=== PATIENT | female | born 1990 | race Caucasian/White ===

== ENCOUNTER → 2019-07-18 08:27 | Outpatient (BNVA) | payer SELFPAY | PROVIDERS: Family Provider Nurse Practitioner; PCP Nurse Practitioner; Visit Provider Obstetrics & Gynecology | DX: A59.9 Trichomoniasis, unspecified (principal) | CPT/HCPCS: 87491; 87591 ==

== ENCOUNTER 2021-03-31 21:31 | Emergency (ER) | payer SELFPAY ==
[2021-03-31 21:37] VITALS: BP 137/80; PULSE 88; RESP 18; TEMP 36.1; O2SAT 97; BMI 33.3
--- NOTE | 2021-03-31 21:53 | W.ED.EYEPROB ---
HPI - Eye Problem General: Chief complaint: Eye Problems Stated complaint: right eye vision loss Time Seen by Provider: 03/31/21 21:53 History of Present Illness: HPI Narrative: Ms. Fine is a 30-year-old lady with history of contact use who presents the emergency department due to eye complaint. She reports yesterday feeling mild aching in her eyes and her removed her contacts both intact. This morning she has had increased redness and pain in the right eye. Pain is generalized and aching in quality. At times up to moderate intensity. Additionally she has had a few episodes of visual disturbance. She describes increased pain with flashing bright light followed by temporary complete loss of vision in the right eye. This subsequently returned and has not recurred over the past hour. She denies similar episodes in the past. Symptoms are typically worse with movement and exertion. No other specific changes in health, exacerbating, relieving factors identified. chief complaint: eye pain, eye redness and vision change Onset (ago): hour(s) Onset description: sudden and gradual Duration: constant Location: right eye Eye Symptoms: redness, pain and decreased vision Mechanism: none Severity: moderate If Pain, Quality: sharp and aching Context: contact lens use Associated symptoms: Reports no associated symptoms Treatments Prior to Arrival: removed contact lens Review of Systems General: Reports: 10 or more systems reviewed and unremarkable except in HPI and below PFS ED PFSH: Medical History (Updated 04/01/21 @ 00:50 by Isael Villafana MD) Polycystic ovarian syndrome 12/20/2017: Diagnosed with PCOS. Started on metformin > 1 year ago. Surgical History No pertinent past surgical history Family History Grandfather Diabetes Maternal grandfather Paternal grandfather Grandmother Diabetes Maternal grandmother Paternal grandmother Mother Heart disease Hyperlipidemia Hypertension Sister Hypertension Family/Other Breast cancer maternal aunt Social History Smoking and tobacco status: current every day smoker cigarettes [ Other cigarette details: 3 daily ] Alcohol intake: never Physical Exam Const: COMMON NORMALS: alert GENERAL APPEARANCE: cooperative and well developed HENMT: COMMON NORMALS: normocephalic and atraumatic HEAD & SCALP: normocephalic and atraumatic THROAT: posterior oropharynx normal Eye: COMMON NORMALS: Equal, round and reactive pupils present and no scleral icterus VISUAL ACUITY: Yes acuity normal ALIGNMENT: Yes alignment normal CONJUNCTIVA: Yes conjunctival abnormal (Conjunctival injection) positive right PUPIL: Yes Equal, round and reactive pupils present and Yes Pupil accommodation reflex normal EYE IMAGES: 1. raised lesion 3 oclock position Neck/C-Spine: COMMON NORMALS: supple GENERAL: Yes trachea midline Resp: COMMON NORMALS: normal respiratory effort EFFORT & INSPECTION: Yes able to speak in complete sentences Cardio: COMMON NORMALS: regular rate and regular rhythm RATE: regular rate RHYTHM: regular rhythm GI: COMMON NORMALS: Soft to palpation PALPATION: Yes Soft to palpation and No Tenderness to palpation present (GI) PERCUSSION: normal to percussion Extremity: GENERAL: Yes normal exam except as noted and No edema Neuro: COMMON NORMALS: moves all extremities SENSORIUM/ORIENTATION: Yes alert and No Orientation impaired Psych: COMMON NORMALS: mental status grossly normal and Normal thought process present THOUGHT PROCESS: Normal thought process present Course ED course: - Patient was seen and evaluated by me at bedside - Vital signed obtained - Initial evaluation notable for non focal neuro exam - Imaging notable for negative head CT. Eye vessels likely too small to evaluate on CTA - Stained eye exam without abrasion. Suspected pterygium or other scleral raised anomoly R eye 3 oclock position just outside iris. Eye pressures OS 10 OD 11 - POC limited ocular US negative for obvious pathology - Upon serial reexamination after treatment the patient was similar without recurrence of vision loss - Given contact lens use will do antibiotic drops. Discussed with ophthalmology, patient can follow in clinic though he is concerned about vascular cause. Discussed smoking cessation with patient. Plan to start on aspirin. - Based on patient history, evaluation, labs, and imaging as interpreted the most likely cause of the patient's condition is transient recurrent vision loss with abnormality seen on eye exam. - The results of ED evaluation were discussed with the patient including prescriptions and/or symptomatic cares (if applicable) including appropriate and responsible use, follow-up plan, and return precautions. The patient verbalized understanding and felt safe for discharge. - Patient discharged in satisfactory condition. Note: Click bubbles or prepopulated harden in note writing are used for assistance with data collection and billing and are inherently more limited than narrative and other text portions of this note. Please use narrative for additional clinical history and defer to narrative/free test for any case of contradictory information. If information appears in only free text or click bubble it should be considered present or absent as reported. Please contact note typewriter tester for clarifications of clinical information or contradictory information. MDM is a brief summary; contradictory or erroneous seeming information should be clarified, and full note should be referred to in cases of contradiction or lack of clarity. Vital Signs: Vital signs: Vital Signs Temperature 97.0 F L 03/31/21 21:37 Pulse Rate 89 04/01/21 01:08 Respiratory Rate 18 04/01/21 01:08 Blood Pressure 113/69 04/01/21 01:08 Pulse Oximetry 96 04/01/21 01:08 MDM - Eye Problem MDM Narrative: Medical decision making narrative: 30 yo F smoker with transient vision loss. Not currently present. History not consistent with retinal detachment. Scleral raised lesion noted on stain exam without other anomaly. Plan for outpatient followup with ophthalmology. Medical Records: Attestation: I reviewed the patient's medical records. Lab Data: Attestation: I reviewed the patient's lab results. Discharge Plan Discharge Patient Disposition: Home Clinical Impression: Transient visual loss of right eye, Acute right eye pain Condition: Stable Prescriptions: New aspirin 325 mg tablet,delayed release (DR/EC) 325 mg PO DAILY Qty: 30 RF: 0 No Action metronidazole [Flagyl] 500 mg tablet 500 mg PO DAILY Qty: 4 RF: 0 medroxyprogesterone [Provera] 10 mg tablet 10 mg PO DAILY Qty: 10 RF: 12 metformin 750 mg tablet extended release 24 hr 750 mg PO BID Qty: 60 RF: 11 Discharge Orders: Discharge ED (Routine); Ordered 04/01/21 Ordered By: Isael Villafana Referrals: Chavez Ferris, DIVISIONAL MERCHANDISING MANAGERChrisC [Primary Care Provider] - Discharge Diet: Usual diet Discharge Activity: Resume usual activity Patient Instructions: How to Stop Smoking (ED), Eye Pain (ED), Vision Problems Activity Restrictions/Additional Instructions: Thank you for visiting the emergency department. You were seen and evaluated for eye pain and visual disturbance. The exact cause of your symptoms is unclear, given your history of contact use you were given antibiotic drops and steroid drops. It did appear that you have what is called a pterygium which can cause irritation. No other ocular complaints require follow-up with ophthalmology. I will message our vocational case manager. The vision loss is also somewhat unclear. We are pleased that this improved however I am concerned that this is related to small vessel disease. I will start you on aspirin. Please quit smoking. Please follow-up with your primary care provider. Return to the emergency department for recurrent symptoms, vision loss, any new neurologic complaints, or anything else that you are concerned about and feel needs emergency department evaluation. Coding Level of Care Code ED Maid Housekeeper for Deshawn Brasher Exam Comprehensive
--- NOTE | 2021-03-31 22:16 | CTR_ITS ---
PROCEDURE INFORMATION: Exam: CT Head Without Contrast Exam date and time: 03/31/2021 10:16 PM Age: 30 years old Clinical indication: Pain; Dizziness and visual disturbance; Headache; Additional info: R eye vision loss TECHNIQUE: Imaging protocol: Computed tomography of the head without contrast. Radiation optimization: All CT scans at this facility use at least one of these dose optimization techniques: automated exposure control; mA and/or kV adjustment per patient size (includes targeted exams where dose is matched to clinical indication); or iterative reconstruction. COMPARISON: CR Cervical Spine AP/Lat* [id number] 04/22/2018 11:07 AM RADIATION DOSE METRICS: Total DLP (mGy-cm): 785 FINDINGS: Brain: Normal. No hemorrhage. Unremarkable white matter. No mass effect. Cerebral ventricles: No ventriculomegaly. Paranasal sinuses: Visualized sinuses are unremarkable. No fluid levels. Mastoid air cells: Visualized mastoid air cells are well aerated. Bones/joints: Unremarkable. No acute fracture. Soft tissues: Unremarkable. CT/CT head wo con* [id number] IMPRESSION: No acute intracranial abnormality.
--- NOTE | 2021-03-31 22:45 | PC.NURSE ---
vision exam R eye-20/25 L eye 20/15 with corrective lenses
[2021-04-01] MEDS: tetracaine 0.5% Op Soln 4 mL Btl 1 DROP EYE-BOTH (00:45)
[2021-04-01] MEDS: fluorescein 1 mg Strip EYE-RIGHT (00:45)
[2021-04-01 01:08] VITALS: BP 113/69; PULSE 89; RESP 18; O2SAT 96
--- NOTE | 2021-04-07 06:47 | DCPLANNER ---
Addendum entered by Joie Irizarry 05/02/21 09:02: manager demand called the office of Dr. Salazar to confirm that an appointment had been scheduled for patient. manager demand was told that when clinic called patient to schedule an appointment that patient stated that she wanted to finish the eye drops that were prescribed. Patient stated that she would call clinic to schedule an appointment if needed. Original Note: manager demand had message to schedule a follow up appointment for patient with Dr. Salazar. manager demand faxed patients information to the office of Dr. Salazar, who will call patient with appointment information.
== END 2021-04-01 01:00 | disposition home or self-care (01) ==
PROVIDERS: Emergency Provider Emergency Medicine; PCP Nurse Practitioner
DX: H53.121 Transient visual loss, right eye (principal); H57.11 Ocular pain, right eye; Z79.84 Long term (current) use of oral hypoglycemic drugs; F17.210 Nicotine dependence, cigarettes, uncomplicated
CPT/HCPCS: 70450; 99283

== ENCOUNTER 2022-06-01 16:54 | Emergency (ER) | payer OTHER, SELFPAY ==
[2022-06-01 17:21] VITALS: BP 117/76; PULSE 91; RESP 14; TEMP 36.9; O2SAT 99
--- NOTE | 2022-06-01 18:28 | ED_ITS ---
HPI - Abdominal Pain General: Chief Complaint: Abdominal Pain Stated Complaint: Just found out preg, lower abd cramps Time Seen by Provider: 06/01/22 18:28 History of Present Illness: Ms. Fine is a 32-year-old lady presenting to the emergency department for abdominal pain. She reports just finding out on Wednesday that she was . She has a history of irregular clear periods and is unsure of how far along, last menstrual period was greater than 1.5 months ago. No vaginal bleeding. No vaginal bleeding. She endorses bilateral lower cramping without significant radiation. Since onset approximately 7 hours ago symptoms have been constant. Intensity is moderate to severe. Worse with palpation. No other specific changes in health, exacerbating, or alleviating factors identified. Onset (ago): hour(s) Pain Consistency: constant Location: Suprapubic and Pelvis Severity: moderate Quality: cramping Radiation: none Migration to: no migration Exacerbating factors: nothing Relieving factors: nothing Context: other Associated Symptoms: Reports no associated symptoms Review of Systems General: Reports: 10 or more systems reviewed and unremarkable except in HPI and below PFSH ED PFSH: Medical History (Updated 06/01/22 @ 22:40 by Isael Villafana MD) Polycystic ovarian syndrome 12/20/2017: Diagnosed with PCOS. Started on metformin > 1 year ago. Surgical History No pertinent past surgical history Family History Grandfather Diabetes Maternal grandfather Paternal grandfather Grandmother Diabetes Maternal grandmother Paternal grandmother Mother Heart disease Hyperlipidemia Hypertension Sister Hypertension Family/Other Breast cancer maternal aunt Social History Smoking and tobacco status: current every day smoker cigarettes [ Other cigarette details: 3 daily] Alcohol intake: never Physical Exam Const: COMMON NORMALS: alert GENERAL APPEARANCE: cooperative and well developed HENMT: COMMON NORMALS: normocephalic and atraumatic HEAD & SCALP: normocephalic and atraumatic Eye: COMMON NORMALS: conjunctivae normal CONJUNCTIVA: Yes conjunctivae normal SCLERA: sclerae normal Neck/C-Spine: COMMON NORMALS: supple GENERAL: Yes trachea midline Resp: COMMON NORMALS: normal respiratory effort EFFORT & INSPECTION: Yes a ble to speak in complete sentences Cardio: COMMON NORMALS: regular rate and regular rhythm RATE: regular rate RHYTHM: regular rhythm GI: COMMON NORMALS: Soft to palpation PALPATION: Yes Soft to palpation, Yes Tenderness to palpation present (GI), No Guarding due to palpation present (GI) and No Rigid due to palpation : OTHER: Pelvic exam performed with communication center coordinator present. No external abnormalities identified. There is moderate amount of white discharge within the vaginal vault. Cervix appears normal. Generalized tenderness with more tenderness in the right adnexal region on bimanual exam. Extremity: GENERAL: Yes normal exam except as noted and No edema Neuro: COMMON NORMALS: moves all extremities SENSORIUM/ORIENTATION: Yes alert and No Orientation impaired Psych: COMMON NORMALS: mental status grossly normal and Normal thought process present THOUGHT PROCESS: Normal thought process present Course Vital Signs: Vital signs: Vital Signs Temperature 98.3 F 06/01/22 22:59 Pulse Rate 76 06/01/22 22:59 Respiratory Rate 14 06/01/22 22:59 Blood Pressure 125/68 06/01/22 22:59 Pulse Oximetry 98 06/01/22 22:59 Oxygen Delivery Me thod 06/01/22 19:36 MDM - Abdominal Pain Medical Decision Making 32-year-old lady presenting with abdominal cramping with concern over positive test. Exam as above. Abdominal tenderness without evidence of acute surgical abdomen. Patient is nontoxic in appearance. Labs notable for leukocytosis and overall mild hemoconcentration. Metabolic panel without significant derangement, ALT elevation again noted. Urinalysis concerning for urinary tract infection. hCG quant is negative. Wet prep positive for bacterial vaginosis. Ultrasound negative for acute pathology. Patient treated during ED course with IV fluids, analgesia, nitrofurantoin and metronidazole. I discussed the results of ED evaluation with the patient. Challenging to be certain however given duration of symptoms relative to hCG I believe that the patient more likely had a false positive home test as opposed to miscarriage though I did explain both possibilities to the patient. Given findings on laboratory studies I believe that we can forego CT imaging at this time. Plan to treat for UTI and bacterial vaginosis. Patient denies concern over new sexual partners or STIs requiring empiric treatment for gonorrhea or chlamydia The results of ED evaluation were discussed with the patient including prescriptions and/or symptomatic cares (if applicable) including appropriate and responsible use, followup plan, and return precautions. The patient verbalized understanding and felt safe for discharge. Medical Records I reviewed the patient's medical records. Lab Data I reviewed the patient's lab results. 06/01/22 18:38 06/01/22 18:38 Labs/Radiology: Radiology Impressions Pelvis Ultrasound 06/01/22 19:50 IMPRESSION: 1. Negative for intrauterine , patient remains at risk for ectopic , close clinical correlation, serial beta HCG levels and follow-up ultrasound as clinically indicated advised. 2. Small amount of nonspecific fluid in the pelvis. 3. 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 Laboratory Results WBC 13.1 10^3/uL (4.0-10.0) H 06/01/22 18:38 RBC 4.85 10^6/uL (4.1-5.3) 06/01/22 18:38 Hgb 15.7 g/dL (11.5-15.3) H 06/01/22 18:38 Hct 45.4 % (37.0-47.0) 06/01/22 18:38 MCV 93.6 fl (81-99) 06/01/22 18:38 MCH 32.4 pg (28.0-34.0) 06/01/22 18:38 MCHC 34.6 g/dL (30.0-36.0) 06/01/22 18:38 RDW 11.5 % (12.1-15.1) L 06/01/22 18:38 Plt Count 213 10^3/cmm (130-400) 06/01/22 18:38 MPV 11.2 fL (7.4-10.4) H 06/01/22 18:38 Neut % (Auto) 70.4 % 06/01/22 18:38 Lymph % (Auto) 21.4 % 06/01/22 18:38 [place] % (Auto) 6.4 % 06/01/22 18:38 Eos % (Auto) 1.3 % 06/01/22 18:38 Baso % (Auto) 0.2 % 06/01/22 18:38 Neut # (Auto) 9.25 10^3/uL (1.8-7.7) H 06/01/22 18:38 Lymph # (Auto) 2.8 10^3/uL (0.8-4.8) 06/01/22 18:38 [place] # (Auto) 0.8 10^3/uL (0.2-0.9) 06/01/22 18:38 Eos # (Auto) 0.2 10^3/uL (0.0-0.8) 06/01/22 18:38 Baso # (Auto) 0.0 10^3/uL (0.0-0.1) 06/01/22 18:38 Nucleated RBC % (auto) 0 % 06/01/22 18:38 Nucleated RBCs # 0.0 /100WBC 06/01/22 18:38 Sodium 141 mmol/L (136-145) 06/01/22 18:38 Potassium 4.0 mmol/L (3.5-5.1) 06/01/22 18:38 Chloride 105 mmol/L (98-107) 06/01/22 18:38 Carbon Dioxide 24 mmol/L (22-29) 06/01/22 18:38 Anion Gap 16.0 (5-19) 06/01/22 18:38 BUN 14 mg/dL (6-20) 06/01/22 18:38 Creatinine 0.7 mg/dL (0.5-0.9) 06/01/22 18:38 GFR Calculation 95.8 mL/min (90-130) 06/01/22 18:38 Glucose 95 mg/dL (65-115) 06/01/22 18:38 Calculated Osmolality 292 mOsm/kg (285-295) 06/01/22 18:38 Calcium 9.1 mg/dL (8.5-10.5) 06/01/22 18:38 Total Bilirubin 0.4 mg/dL (0.15-1.2) 06/01/22 18:38 AST 22 U/L (0-32) 06/01/22 18:38 ALT 34 U/L (0-33) H 06/01/22 18:38 Alkaline Phosphatase 100 U/L (35-105) 06/01/22 18:38 Total Protein 7.4 g/dL (6.6-8.7) 06/01/22 18:38 Albumin 4.4 g/dL (3.5-5.2) 06/01/22 18:38 Globulin 3.0 g/dL (1.3-4.6) 06/01/22 18:38 Lipase 41 U/L (13-60) 06/01/22 18:38 Ser , Semi-Qnt 1.00 mIU/mL 06/01/22 18:38 Urine Color Yellow (Yellow) 06/01/22 19:02 Urine Appearance Hazy (CLEAR) A 06/01/22 19:02 Urine pH 5 (5-7) 06/01/22 19:02 Ur Specific Crawford 1.025 (1.005-1.030) 06/01/22 19:02 Urine Protein Neg (Negative) 06/01/22 19:02 Urine Glucose (UA) Norm (Normal) 06/01/22 19:02 Urine Ketones 1+ (Negative) H 06/01/22 19:02 Urine Blood 2+ (Negative) H 06/01/22 19:02 Urine Nitrate Negative (Negative) 06/01/22 19:02 Urine Bilirubin 1+ (Negative) H 06/01/22 19:02 Urine Urobilinogen 4 mg/dL (Negative) H 06/01/22 19:02 Ur Leukocyte Esterase 2+ (Negative) H 06/01/22 19:02 Urine RBC 10-15 /hpf (0-2) H 06/01/22 19:02 Urine WBC 25-40 /hpf (0-5) H 06/01/22 19:02 Ur Squamous Epith Cells 0-4 /hpf (0-5) H 06/01/22 19:02 Amorphous Sediment Not Reportable 06/01/22 19:02 Urine Bacteria Trace /hpf (NONE) 06/01/22 19:02 Discharge Plan Discharge Patient Disposition: Home Clinical Impression: Bacterial vaginosis, Abdominal pain, UTI (urinary tract infection) Condition: Stable Prescriptions: New metronidazole 500 mg tablet 500 mg PO BID 10 Days Qty: 20 0RF nitrofurantoin macrocrystal 100 mg capsule 100 mg PO BID 7 Days Qty: 14 0RF Rx Instructions: must administer with a meal/food ondansetron 4 mg tablet,disintegrating 4 mg PO Q8H PRN (Reason: nausea and vomiting) Qty: 15 0RF No Action metronidazole [Flagyl] 500 mg tablet 500 mg PO DAILY Qty: 4 0RF Rx Instructions: Take all 4 tablets at once medroxyprogesterone [Provera] 10 mg tablet 10 mg PO DAILY Qty: 10 12RF metformin 750 mg tablet extended release 24 hr 750 mg PO BID Qty: 60 11RF aspirin 325 mg tablet,delayed release (DR/EC) 325 mg PO DAILY Qty: 30 0RF Discharge Orders: Discharge ED (Routine); Ordered 06/01/22 Ordered By: Isael Villafana Referrals: Chavez Ferris, [employer] W[employer]ING SYSTEM OPERATOR-C [Primary Care Provider] - Discharge Diet: Usual diet Discharge Activity: Increase activity as tolerated Patient Instructions: Bacterial Vaginosis (ED), Urinary Tract Infection in Women (ED), Abdominal Pain (ED), Opioid Safety Activity Restrictions/Additional Instructions: Thank you for visiting the emergency department. You were seen and evaluated for abdominal pain. The most likely cause of your pain is a combination of bacterial vaginosis and urinary tract infection. I will prescribe antibiotics and antinausea medication. You may use [id number] medications such as acetaminophen and ibuprofen for pain however please do not exceed the daily recommended dosage as listed on the packaging and please keep in mind that many namebrand medications contain the same active ingredients. Please avoid these medications if previously instructed to do so by another physician due to other underlying medical condition. I would expect improvement in the next few days. Please follow-up with your primary care provider. Return to the emergency department for anything that you are concerned about and feel needs emergency department evaluation. Coding Level of Care Code ED Block Operator for Deshawn Brasher
[2022-06-01 18:48] VITALS: BP 115/71; PULSE 83; O2SAT 96
[2022-06-01 18:49] LABS: Basophils % 0.2 %; Eosinophils # 0.2 10^3/uL (0.0-0.8); Eosinophils % 1.3 %; Hematocrit 45.4 % (37.0-47.0); Hemoglobin 15.7 g/dL (11.5-15.3); Lymphocytes # 2.8 10^3/uL (0.8-4.8); Lymphocytes % 21.4 %; Mean Corpuscular HGB Conc 34.6 g/dL (30.0-36.0); Mean Corpuscular Hemoglobin 32.4 pg (28.0-34.0); Mean Corpuscular Volume 93.6 fl (81-99); Mean Platelet Volume 11.2 fL (7.4-10.4); Monocytes # 0.8 10^3/uL (0.2-0.9); Monocytes % 6.4 %; Neutrophils # 9.25 10^3/uL (1.8-7.7); Neutrophils % 70.4 %; Nucleated Red Blood Cells % 0 %; Platelet Count 213 10^3/cmm (130-400); Red Blood Count 4.85 10^6/uL (4.1-5.3); Red Cell Distribution Width 11.5 % (12.1-15.1); White Blood Count 13.1 10^3/uL (4.0-10.0)
--- NOTE | 2022-06-01 19:14 | PC.NURSE ---
Report from YASMEEN Soto. Pt left side lying. Denies needs at this time. Set up for pelvic exam
[2022-06-01 19:19] LABS: Alanine Aminotransferase 34 U/L (0-33); Albumin Level 4.4 g/dL (3.5-5.2); Alkaline Phosphatase 100 U/L (35-105); Aspartate Amino Transferase 22 U/L (0-32); Blood Urea Nitrogen 14 mg/dL (6-20); Calcium 9.1 mg/dL (8.5-10.5); Carbon Dioxide 24 mmol/L (22-29); Chloride 105 mmol/L (98-107); Glomerular Filtration Rate 95.8 mL/min (90-130); Glucose 95 mg/dL (65-115); Lipase 41 U/L (13-60); Osmolality Calculated 292 mOsm/kg (285-295); Sodium 141 mmol/L (136-145); Total Bilirubin 0.4 mg/dL (0.15-1.2); Total Protein 7.4 g/dL (6.6-8.7)
[2022-06-01 19:24] LABS: Add Urine Microscopic? YES; Bilirubin Urine 1+ (Negative); Blood Urine 2+ (Negative); Glucose Urine UA Norm (Normal); Ketones Urine 1+ (Negative); Leukocyte Esterase Urine 2+ (Negative); Nitrate Urine Negative (Negative); Protein Urine Neg (Negative); Specific Gravity, Urine 1.025 (1.005-1.030); Urine Appearance Hazy (CLEAR); Urine Color Yellow (Yellow); Urobilinogen Urine 4 mg/dL (Negative); pH Urine 5 (5-7)
[2022-06-01 19:30] LABS: Add Urine Culture? Yes; Bacteria Urine TRACE /hpf; Squamous Epithelial Cell Urine 0-4 /hpf (0-5); WBC Urine 25-40 /hpf (0-5)
[2022-06-01] MEDS: sodium chloride 0.9% 1,000 ML 999 ML IV (19:33)
[2022-06-01 19:34] VITALS: RESP 14; O2SAT 96
[2022-06-01] MEDS: morphine 4 mg/mL SDV 1 mL IVP (19:34)
[2022-06-01 19:36] VITALS: BP 106/72; PULSE 75; RESP 14; O2SAT 97
--- NOTE | 2022-06-01 19:50 | USR_ITS ---
PROCEDURE INFORMATION: Exam: US First Trimester, Transabdominal and US , Transvaginal Exam date and time: 06/01/2022 9:15 PM Age: 32 years old Clinical indication: complicated by abdominal or pelvic pain; Right lower quadrant; First trimester (<14 weeks 0 days); Gestational age or lmp: 5w 6d; ; Patient HX: G15 - p0 quant hcg is very low = 1.0, no vag bleed. ; Additional info: Pelvic pain, R adnexal tenderness LABS AND CLINICAL REPORTS: Serum Choriogonadotropin (HCG): 1 mIU/mL Last menstrual period start date: 04/21/2022 Gestational age (Established): 5 w 6 d Estimated due date (Established): 01/26/2023 TECHNIQUE: Imaging protocol: Real-time transabdominal obstetrical ultrasound of the maternal pelvis and a first trimester , less than 14 weeks 0 days, with image documentation. Transvaginal imaging was used for better evaluation of the fetus, adnexa, and/or cervix. COMPARISON: No relevant prior studies available. FINDINGS: Gestation: Negative for intrauterine , patient remains at risk for ectopic , close clinical correlation, serial beta HCG levels and follow-up ultrasound as clinically indicated advised. MATERNAL: Uterus: Uterus measures 11.1 cm x 5.9 cm x 7.1 cm. 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 Cervix: Unremarkable. Right ovary/adnexa: Right ovary measures 4 cm x 2.3 cm x 3.4 cm. Right ovarian volume is 16 mL. Left ovary/adnexa: Left ovary measures 3.6 cm x 2.1 cm x 4.2 cm. Left ovarian volume is 14.7 mL. Intraperitoneal space: Small amount of nonspecific fluid in the pelvis. US/US pelvic complete* [id number] IMPRESSION: 1. Negative for intrauterine , patient remains at risk for ectopic , close clinical correlation, serial beta HCG levels and follow-up ultrasound as clinically indicated advised. 2. Small amount of nonspecific fluid in the pelvis. 3. 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
[2022-06-01] MEDS: nitrofurantoin SR (BID) 100 mg Capsule PO (22:53)
[2022-06-01] MEDS: metroNIDAZOLE 500 MG Tablet PO (22:53)
[2022-06-01 22:59] VITALS: BP 125/68; PULSE 76; RESP 14; TEMP 36.8; O2SAT 98
== END 2022-06-01 23:07 | disposition home or self-care (01) ==
PROVIDERS: Emergency Provider Emergency Medicine; PCP Nurse Practitioner
DX: N39.0 Urinary tract infection, site not specified (principal); N76.0 Acute vaginitis; Z79.82 Long term (current) use of aspirin
CPT/HCPCS: 76856; 80053; 81001; 83690; 84702; 85025; 87086; 87210; 96361; 96374; 99285; J2270; J7030

== ENCOUNTER 2022-06-29 12:52 | Emergency (ER) | payer OTHER, SELFPAY ==
--- NOTE | 2022-06-29 13:21 | PC.NURSE ---
CALLED TO [facility] NO ANSWER
[2022-06-29 13:23] VITALS: RESP 18; BMI 29.9
[2022-06-29 13:28] VITALS: BP 106/68; PULSE 80; RESP 18; TEMP 36.7; O2SAT 98
--- NOTE | 2022-06-29 13:31 | XR_ITS ---
WS: [id number] EXAMINATION: XR cervical spine 3V* [id number] Cervical spine 3 views REASON FOR EXAM: neck pain COMPARISON: None available. FINDINGS: There is no sign of acute fracture or subluxation. Vertebral body heights and intervertebral disc sp aces are maintained. The cervical bony alignment and osseous densities appear normal. There is no p revertebral soft tissue change. There are bilateral cervical ribs. XR/XR cervical spine 3V* [id number] IMPRESSION: No acute osseous abnormality.
--- NOTE | 2022-06-29 13:40 | ED_ITS ---
HPI - Neck Pain/Injury General: Chief Complaint: Neck Pain/Injury Stated Complaint: neck pain Time Seen by Provider: 06/29/22 13:30 History of Present Illness: Patient is a 32-year-old female comes to the ED with neck pain. Injuries occurred today. She was putting her hair up in holly ytail and then felt a crack in her neck and says she collapsed and pain. She now has 9 out of 10 pain on the left side of her neck. Pain worsens with any movement of her neck. Patient is not had anything for pain before coming to the ED. Associated symptoms: Denies headache(s) or nausea Review of Systems Const: Denies: fever(s), chills or fatigue Eyes: Denies: change in vision or eye discomfort ENMT: Denies: throat pain, odynophagia, nasal discharge or nasal congestion Card: Denies: chest pain, palpitations, edema, swelling of feet/ankles, dyspnea on exertion or orthopnea Resp: Denies: dyspnea, productive cough or non-productive cough GI: Denies: abdominal pain, nausea, vomiting, diarrhea, constipation or hematochezia : Denies: flank pain, dysuria or hematuria Musc: Reports: neck pain; Denies: back pain or extremity swelling Skin/Breast: Denies: rash or new lesions Neuro: Denies: headache(s), numbness in extremities or weakness in extremities PFS ED PFSH: Medical History (Updated 06/29/22 @ 14:51 by TANA Dacosta) Polycystic ovarian syndrome 12/20/2017: Diagnosed with PCOS. Started on metformin > 1 year ago. Surgical History No pertinent past surgical history Family History Grandfather Diabetes Maternal grandfather Paternal grandfather Grandmother Diabetes Maternal grandmother Paternal grandmother Mother Heart disease Hyperlipidemia Hypertension Sister Hypertension Family/Other Breast cancer maternal aunt Social History Smoking and tobacco status: current every day smoker cigarettes [ Other cigarette details: 3 daily] Alcohol intake: never Physical Exam Const: COMMON NORMALS: patient oriented x3 HENMT: COMMON NORMALS: normocephalic HEAD & SCALP: normocephalic MOUTH: Normal oral and palatal mucosa present THROAT: posterior oropharynx normal and uvula midline Neck/C-Spine: COMMON NORMALS: supple GENERAL: Yes normal visual inspection CERVICAL SPINE: Yes Paracervical muscle tenderness bilateral Resp: COMMON NORMALS: normal respiratory effort, No retractions, No use of accessory muscles and clear to auscultation bilaterally AUSCULTATION: clear to auscultation bilaterally Cardio: COMMON NORMALS: regular rate, regular rhythm, S1 normal heart sound present, S2 normal heart sound present, No gallops present (Cardio), No clicks present (Cardio), No murmurs present (Cardio) and Peripheral pulses 2+ througho ut RATE: regular rate RHYTHM: regular rhythm HEART SOUNDS: S1 normal heart sound present and S2 normal heart sound present PERIPHERAL PULSES: Peripheral pulses 2+ throughout GI: COMMON NORMALS: Normal to inspection, nondistended, normoactive bowel sounds present, Soft to palpation, non-tender and no masses PALPATION: Yes Soft to palpation : COMMON NORMALS: Yes no CVA tenderness BLADDER/KIDNEY EXAM: Yes no CVA tenderness Back/Pelvis: COMMON NORMALS: no CVA tenderness Extremity: COMMON NORMALS: normal to inspection Neuro: COMMON NORMALS: patient oriented x3 GAIT: Yes Normal gait present Skin: GENERAL SKIN EXAM: dry skin Course Vital Signs: Vital signs: Vital Signs Temperature 98.1 F 06/29/22 13:28 Pulse Rate 76 06/29/22 15:01 Respiratory Rate 15 06/29/22 15:01 Blood Pressure 102/69 06/29/22 15:01 Pulse Oximetry 99 06/29/22 15:01 Oxygen Delivery Me thod 06/29/22 13:28 MDM - Neck Pain/Injury Medical Decision Making Patient is a 32-year-old female comes to the ED with neck pain. Injuries occurred today. She was putting her hair up in ponytail and then felt a crack in her neck and says she collapsed and pain. She now has 9 out of 10 pain on the left side of her neck. Pain worsens with any movement of her neck. Patient is not had anything for pain before coming to the ED. vitals are stable. Patient appears nontoxic in no acute distress or pain. She has bilateral paracervical muscle tenderness rest of exam is benign. X-ray cervical spine shows no acute findings. Patient was given dose of Toradol and muscle relaxer. She is diagnosed with neck pain and was stable for discharge home. She was sent home with a prescription for a muscle relaxer and ibuprofen. Follow-up with PCP in the next week for reevaluation. Patient understood and agreed with plan. Lab Data Radiology Impressions Cervical Spine X-Ray 06/29/22 13:31 IMPRESSION: No acute osseous abnormality. Discharge Plan Discharge Patient Disposition: Home Clinical Impression: Neck pain Condition: Stable Prescriptions: New cyclobenzaprine 10 mg tablet 10 mg PO BID PRN (Reason: muscle spasm) Qty: 20 0RF ibuprofen 800 mg tablet 800 mg PO Q8H PRN (Reason: pain) Qty: 20 0RF No Action metronidazole [Flagyl] 500 mg tablet 500 mg PO DAILY Qty: 4 0RF Rx Instructions: Take all 4 tablets at once medroxyprogesterone [Provera] 10 mg tablet 10 mg PO DAILY Qty: 10 12RF metformin 750 mg tablet extended release 24 hr 750 mg PO BID Qty: 60 11RF aspirin 325 mg tablet,delayed release (DR/EC) 325 mg PO DAILY Qty: 30 0RF ondansetron 4 mg tablet,disintegrating 4 mg PO Q8H PRN (Reason: nausea and vomiting) Qty: 15 0RF Discharge Orders: Discharge ED (Routine); Ordered 06/29/22 Ordered By: Ben Bennett Referrals: Chavez Ferris, PASTEURIZER HELPER-C [Primary Care Provider] - Discharge Diet: Regular Discharge Activity: Increase activity as tolerated Patient Instructions: Neck Pain (ED) Activity Restrictions/Additional Instructions: Follow-up with medical provider as directed in the next 5 to 7 days for reevaluation. Take medications as prescribed. Return to the ER or your medical provider if condition worsens. Please read and understand discharge ins tructions. Thank you for choosing [facility] for your healthcare needs today. Please realize this is an emergency room and that we are providing you with a medical screening exam and this may not be complete and all inclusive of all the testing and or work up that you may need to determine your ailment or severity of your illness. It is very important that you follow up as instructed or that you return to the Emergency Department should you have concerns or if your condition changes or worsens in any way. Coding Level of Care Code ED Post Doctoral Researcher for Deshawn Brasher
[2022-06-29] MEDS: ketorolac 60 mg/2 mL INJ IM (13:57)
[2022-06-29] MEDS: orphenadrine 30 mg/mL Inj 2 mL 60 MG IM (13:57)
[2022-06-29 15:01] VITALS: BP 102/69; PULSE 76; RESP 15; O2SAT 99
== END 2022-06-29 15:04 | disposition home or self-care (01) ==
PROVIDERS: Emergency Provider Physician Assistant; PCP Nurse Practitioner
DX: M54.2 Cervicalgia (principal)
CPT/HCPCS: 72040; 96372; 99284; J1885; J2360

== ENCOUNTER 2022-10-29 11:57 | Outpatient (CLI) | payer OTHER, SELFPAY ==
--- NOTE | 2022-10-29 12:08 | XR_ITS ---
WS: [id number] XR cervical spine 3V* [id number] REASON FOR EXAM: cervical radiculopathy FINDINGS: Straightening of the normal lordosis of the cervical spine. No significant vertebral body abnormality. Intervertebral disc spaces are intact and relatively well preserved. Mild narrowing of the C7-T1 disc space. The examination is unchanged compared to 06/29/2022. IMPRESSION: Stable cervical spine as above.
== END 2022-10-29 11:58 | disposition home or self-care (01) ==
PROVIDERS: PCP Nurse Practitioner; Visit Provider Emergency Medicine
DX: M54.12 Radiculopathy, cervical region (principal)
CPT/HCPCS: 72040

== ENCOUNTER 2023-01-05 12:50 | Outpatient (RCR) | payer OTHER, SELFPAY | END 2023-01-19 23:59 | disposition home or self-care (01) | LOC: SPT 12:50 | PROVIDERS: PCP Nurse Practitioner; Visit Provider Nurse Practitioner | DX: M54.12 Radiculopathy, cervical region (principal) | CPT/HCPCS: 97110; 97140; 97161 ==

== ENCOUNTER → 2023-01-14 10:56 | Outpatient (BNVA) | payer OTHER, SELFPAY | PROVIDERS: PCP Nurse Practitioner; Visit Provider Nurse Practitioner Family | DX: R19.7 Diarrhea, unspecified (principal) | CPT/HCPCS: 80053; 84443; 85025 ==

== ENCOUNTER 2023-01-22 09:41 | Outpatient (RCR) | payer OTHER, SELFPAY | END 2023-02-18 23:59 | disposition home or self-care (01) | LOC: SPT 09:41 | PROVIDERS: PCP Nurse Practitioner; Visit Provider Nurse Practitioner | DX: M54.12 Radiculopathy, cervical region (principal) | CPT/HCPCS: 97110; 97140 ==

== ENCOUNTER 2023-01-29 11:10 | Outpatient (CLI) | payer OTHER, SELFPAY | END 2023-01-29 11:11 | disposition home or self-care (01) | LOC: LAB 11:11 | PROVIDERS: PCP Nurse Practitioner; Visit Provider Nurse Practitioner | DX: R19.7 Diarrhea, unspecified (principal) | CPT/HCPCS: 83630; 87045; 87338; 87427; 87449 ==

== ENCOUNTER 2023-03-03 10:16 | Outpatient (CLI) | payer OTHER, SELFPAY ==
[2023-03-05 14:30] LABS: Egg White (F1) Ige <0.10 kU/L; Egg White Class 0; Immunoglobulin E 74 kU/L (<OR=114); Maize Corn Class 0; Maize/Corn (F8) Ige <0.10 kU/L; Oat (F7) Ige <0.10 kU/L; Oat Class 0; Pork Class 0/1; Potato (F35) Ige <0.10 kU/L; Potato Class 0; Rye (F5) Ige <0.10 kU/L; Rye Class 0; Soybean (F14) Ige <0.10 kU/L; Soybean Class 0; Tomato (F25) Ige <0.10 kU/L; Tomato Class 0; Wheat (F4) Ige <0.10 kU/L; Wheat Class 0
[2023-03-07 17:35] LABS: Allergen Beef Igg 13.1 mcg/mL (<2.0); Allergen Cacao (Chocolate) Igg 2.8 mcg/mL (<2.0); Allergen Chicken Meat Igg <2.0 mcg/mL (<2.0); Allergen Orange Igg <2.0 mcg/mL (<2.0); Allergen Peanut Igg <2.0 mcg/mL (<2.0); Yeast (F45) Igg <2.0 mcg/mL (<2.0)
== END 2023-03-03 10:17 | disposition home or self-care (01) ==
LOC: LAB 10:16
PROVIDERS: PCP Nurse Practitioner; Visit Provider Nurse Practitioner
DX: K52.29 Other allergic and dietetic gastroenteritis and colitis (principal)
CPT/HCPCS: 36415; 86003

== ENCOUNTER 2023-07-07 23:17 | Emergency (ER) | payer OTHER, SELFPAY ==
[2023-07-07 23:19] VITALS: BP 128/84; PULSE 87; RESP 18; TEMP 36.6; O2SAT 97
--- NOTE | 2023-07-07 23:53 | ED_ITS ---
HPI - Ear Problem General: Chief complaint: Ear Stated complaint: blood in left ear Time Seen by Provider: 07/07/23 23:31 Source: patient Mode of arrival: ambulatory Limitations: no limitations History of Present Illness: Patient is a 33-year-old female presents to ED today with complaint of bilateral ear complaints. She states she has black stuff in my right ear and blood out of my left ear . She denies any recent injury or trauma to either ear. She states she has not inserted anything into either ear. Denies history of diabetes or immunosuppression. Hearing loss or tinnitus. States her ears feel full and somewhat itchy. 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 Surgical History No pertinent past surgical history Family History Grandfather Diabetes Maternal grandfather Paternal grandfather Grandmother Diabetes Maternal grandmother Paternal grandmother Mother Heart disease Hyperlipidemia Hypertension Sister Hypertension Family/Other Breast cancer maternal aunt Social History Smoking and tobacco/nicotine status: current every day tobacco/nicotine user cigarettes [ Other cigarette details: 3 daily] Second hand smoke exposure: No Alcohol intake: unknown Substance/Drug Use: unknown Adopted: No Caregiver/support person: No Lives independently: Yes Household members: family Marital status: Single Number of children: 0 service: No Current occupational status: employed Current occupation: [employer] Pets and animals: Yes Do you think of yourself as: Straight/Heterosexual Current gender identity: Female Physical Exam Const: COMMON NORMALS: no acute distress, no limitations, alert and well nourished HENMT: COMMON NORMALS: TM's normal bilaterally FACE & SINUS: normal facial exam EXTERNAL EAR: Yes mastoids normal and Yes no periauricular adenopathy EXTERNAL AUDITORY CANAL: Abnormal EAC present EAC laterality: right (scant amount of black material; favor dirt/debris vs otomycosis) and left (abraded canal with dried blood; TM intact) TYMPANIC MEMBRANE: TM's normal bilaterally Neuro: SENSORIUM/ORIENTATION: Yes alert Course Vital Signs: Vital signs: Vital Signs Temperature 97.8 F 07/07/23 23:19 Pulse Rate 87 07/07/23 23:19 Respiratory Rate 18 07/07/23 23:19 Blood Pressure 128/84 07/07/23 23:19 Pulse Oximetry 97 07/07/23 23:19 Oxygen Delivery Me thod Room Air 07/07/23 23:19 MDM - Ear Medical Decision Making Patient's bilateral TMs appear normal. She has a small amount of black sprinkled material in her right EAC. I favor this most likely is dirt/other organic material vs an otomycosis as she has no risk factors for this. She has blood in her R EAC with an abraded canal and intact TM. Will place on otic drops and recommend follow-up with her PCP in 1 to 2 weeks if symptoms persist. Return ED precautions given. Medical Records I reviewed the patient's medical records. No radiology studies performed this visit Discharge Plan Discharge Patient Disposition: Home Clinical Impression: Abrasion of ear canal Condition: Stable Prescriptions: New aogwuijy-etwbimrga-KB 3.5-10,000-1 mg/mL-unit/mL-% solution 3 drp otic (ear) Q8H 7 Days Qty: 10 0RF No Action ibuprofen 600 mg tablet 600 mg PO Q8H PRN (Reason: pain) Qty: 60 0RF cholestyramine (with sugar) [Questran] 4 gram powder 4 g PO TID Qty: 348.6 0RF Rx Instructions: administer w/meal; avoid other meds within 1hr before or 4-6hr after dose metformin 500 mg tablet extended release 24 hr 1,000 mg PO DAILY aspirin 325 mg tablet,delayed release (DR/EC) 325 mg PO DAILY Qty: 30 0RF Discharge Orders: Discharge ED (Routine); Ordered 04/18/24 Ordered By: Shalini Hayes Referrals: Chavez Ferris, DIGITAL MARKETING INTERN-C [Primary Care Provider] - Coding Level of Care Code ED Chemical Processor for eDshawn Brasher
[2023-07-08 01:05] VITALS: BP 119/73; PULSE 84; O2SAT 98
== END 2023-07-08 01:05 | disposition home or self-care (01) ==
PROVIDERS: Emergency Provider Physician Assistant; PCP Nurse Practitioner
DX: S00.412A Abrasion of left ear, initial encounter (principal); X58.XXXA Exposure to other specified factors, initial encounter; F17.210 Nicotine dependence, cigarettes, uncomplicated; Z79.84 Long term (current) use of oral hypoglycemic drugs; Z79.82 Long term (current) use of aspirin
CPT/HCPCS: 99283

== ENCOUNTER → 2023-08-24 08:01 | Outpatient (BNVA) | payer OTHER, MEDICAID, SELFPAY | PROVIDERS: PCP Nurse Practitioner; Visit Provider Nurse Practitioner Women's Health | DX: Z34.90 Encounter for supervision of normal pregnancy, unspecified, unspecified trimester (principal); Z3A.00 Weeks of gestation of pregnancy not specified; N92.6 Irregular menstruation, unspecified | CPT/HCPCS: 81025; 84702; 86850; 86900 ==

== ENCOUNTER 2023-08-28 12:54 | Emergency (ER) | payer OTHER, BC, MEDICAID, SELFPAY ==
[2023-08-28 13:07] VITALS: BP 113/72; PULSE 99; RESP 16; TEMP 36.9; O2SAT 98
--- NOTE | 2023-08-28 14:12 | W.ED.PREGNAN ---
HPI - General: Chief complaint: Vaginal Bleeding Stated complaint: 10 weeks preg, spotting Time Seen by Provider: 08/28/23 13:12 Source: patient Mode of arrival: ambulatory History of Present Illness: 33-year-old female had painless vaginal bleeding that began today while at work she describes it as spotting since its already resolved. She is concerned because she has had multiple miscarriages in the past. Patient is G3, P0 with 2 previous spontaneous AB's. She believes that she is at approximately 10 weeks based on her last known menstrual period. No active bleeding or pain at this time. 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 Surgical History No pertinent past surgical history Family History Grandfather Hypertension Grandmother Diabetes Maternal grandmother Paternal grandmother Hypertension Stroke Mother Heart disease Hyperlipidemia Hypertension Stroke Sister Hypertension Heart disease Diabetes Family/Other Breast cancer maternal aunt Father Hypertension Denies family history of Colon cancer Ovarian cancer Uterine cancer Thyroid disease Social History Smoking and tobacco/nicotine status: current every day tobacco/nicotine user cigarettes [ Other cigarette details: 3 daily] Second hand smoke exposure: No Alcohol intake: unknown Substance/Drug Use: unknown Adopted: No Caregiver/support person: No Lives independently: Yes Household members: family Marital status: Single Number of children: 0 service: No Current occupational status: employed Current occupation: [employer] Pets and animals: Yes Do you think of yourself as: Straight/Heterosexual Current gender identity: Female Physical Exam Const: COMMON NORMALS: no acute distress GENERAL APPEARANCE: cooperative and comfortable ORIENTATION/CONSCIOUSNESS: Yes awake, Yes oriented to person, Yes oriented to place and Yes oriented to time HENMT: COMMON NORMALS: normocephalic, atraumatic and hearing grossly normal bilaterally HEAD & SCALP: normocephalic and atraumatic Resp: COMMON NORMALS: normal respiratory effort, No retractions, No use of accessory muscles and clear to auscultation bilaterally AUSCULTATION: clear to auscultation bilaterally Cardio: COMMON NORMALS: regular rate, regular rhythm and No murmurs present (Cardio) RATE: regular rate RHYTHM: regular rhythm GI: COMMON NORMALS: Soft to palpation and No hepatosplenomegaly present AUSCULTATION: Yes normoactive bowel sounds PALPATION: Yes Soft to palpation, No Tenderness to palpation present (GI), No Guarding due to palpation present (GI) and Yes No hepatosplenomegaly present Extremity: COMMON NORMALS: normal to inspection, capillary refill normal, no clubbing, cyanosis or edema, no calf tenderness and no pedal edema Neuro: SENSORIUM/ORIENTATION: Yes oriented to person, Yes oriented to place and Yes oriented to time Skin: COMMON NORMALS: no rashes or lesions noted GENERAL SKIN EXAM: no rashes or lesions noted Course Vital Signs: Vital signs: Vital Signs Temperature 98.5 F 08/28/23 13:07 Pulse Rate 80 08/28/23 18:02 Respiratory Rate 17 08/28/23 18:02 Blood Pressure 130/79 08/28/23 18:02 Pulse Oximetry 98 08/28/23 18:02 Oxygen Delivery Me thod Room Air 08/28/23 16:11 MDM - OB/Uterine Contractions Medical Decision Making Patient has previously had ultrasound clinic that confirmed intrauterine . Could see intrauterine content but could not visualize gross heart movement. Beta-hCG is The 26,000 range according to the ranges given on report it is slightly low for gestational age. She is not having any further cramping or pain at this time she states she is not having any further bleeding. Hemoglobin is stable will admit discharge home and refer for repeat beta-hCG with her OB clinic. Return if has development of pain or further bleeding. Medical Records I reviewed the patient's medical records. Lab Data I reviewed the patient's lab results. 08/28/23 16:08 08/28/23 16:08 Laboratory Results WBC 12.45 10^3/uL (3.29-11.43) H 08/28/23 16:08 RBC 4.26 10^6/uL (3.85-5.65) 08/28/23 16:08 Hgb 14.10 g/dL (11.27-16.99) 08/28/23 16:08 Hct 40.0 % (36-47) 08/28/23 16:08 MCV 93.9 fl (85-98) 08/28/23 16:08 MCH 33.1 pg (27-33) H 08/28/23 16:08 MCHC 35.3 g/dL (30-55) 08/28/23 16:08 RDW 11.7 % (12.1-15.1) L 08/28/23 16:08 Plt Count 211 10^3/cmm (157-399) 08/28/23 16:08 MPV 10.9 fL (7.4-10.4) H 08/28/23 16:08 Neut % (Auto) 65.7 % 08/28/23 16:08 Lymph % (Auto) 23.9 % 08/28/23 16:08 Hand % (Auto) 6.9 % 08/28/23 16:08 Eos % (Auto) 2.7 % 08/28/23 16:08 Baso % (Auto) 0.2 % 08/28/23 16:08 Neut # (Auto) 8.18 10^3/uL (1.8-7.7) H 08/28/23 16:08 Lymph # (Auto) 3.0 10^3/uL (0.8-4.8) 08/28/23 16:08 Hand # (Auto) 0.9 10^3/uL (0.2-0.9) 08/28/23 16:08 Eos # (Auto) 0.3 10^3/uL (0.0-0.8) 08/28/23 16:08 Baso # (Auto) 0.0 10^3/uL (0.0-0.1) 08/28/23 16:08 Nucleated RBC % (auto) 0 % 08/28/23 16:08 Nucleated RBCs # 0.0 /100WBC 08/28/23 16:08 Sodium 137 mmol/L (136-145) 08/28/23 16:08 Potassium 3.8 mmol/L (3.5-5.1) 08/28/23 16:08 Chloride 105 mmol/L (98-107) 08/28/23 16:08 Carbon Dioxide 24 mmol/L (22-29) 08/28/23 16:08 Anion Gap 11.8 (5-19) 08/28/23 16:08 BUN 16 mg/dL (6-20) 08/28/23 16:08 Creatinine 0.9 mg/dL (0.5-0.9) 08/28/23 16:08 GFR Calculation 71.3 mL/min (90-130) L 08/28/23 16:08 Glucose 79 mg/dL (65-115) 08/28/23 16:08 Calculated Osmolality 284 mOsm/kg (285-295) L 08/28/23 16:08 Calcium 9.0 mg/dL (8.5-10.5) 08/28/23 16:08 Total Bilirubin 0.3 mg/dL (0.15-1.2) 08/28/23 16:08 AST 17 U/L (0-32) 08/28/23 16:08 ALT 22 U/L (0-33) 08/28/23 16:08 Alkaline Phosphatase 75 U/L (35-105) 08/28/23 16:08 Total Protein 7.4 g/dL (6.6-8.7) 08/28/23 16:08 Albumin 4.3 g/dL (3.5-5.2) 08/28/23 16:08 Globulin 3.1 g/dL (1.3-4.6) 08/28/23 16:08 Ser , Semi-Qnt 33089.00 mIU/mL 08/28/23 16:08 Urine Color Yellow (Yellow) 08/28/23 14:03 Urine Appearance Clear (CLEAR) 08/28/23 14:03 Urine pH 5 (5-7) 08/28/23 14:03 Ur Specific Lawrence 1.025 (1.005-1.030) 08/28/23 14:03 Urine Protein Neg (Negative) 08/28/23 14:03 Urine Glucose (UA) Norm (Normal) 08/28/23 14:03 Urine Ketones Negative (Negative) 08/28/23 14:03 Urine Blood Neg (Negative) 08/28/23 14:03 Urine Nitrate Negative (Negative) 08/28/23 14:03 Urine Bilirubin Neg (Negative) 08/28/23 14:03 Urine Urobilinogen Norm mg/dL (Negative) 08/28/23 14:03 Ur Leukocyte Esterase Negative (Negative) 08/28/23 14:03 No radiology studies performed this visit Discharge Plan Discharge Patient Disposition: Home Clinical Impression: First trimester bleeding Condition: Stable Prescriptions: No Action Gummies 400 mcg-35 mg- 25 mg-5 mg tablet,chewable PO DAILY Discharge Orders: Discharge ED (Routine); Ordered 08/28/23 Ordered By: Navin Samayoa Referrals: Chavez Ferris, GOVERNMENT AFFAIRS RESEARCHER-C [Primary Care Provider] - Discharge Diet: Usual diet Discharge Activity: Increase activity as tolerated Patient Instructions: Opioid Safety, Pain Management Activity Restrictions/Additional Instructions: Thank you for choosing [facility] for your healthcare needs today. It is very important that you follow up as instructed or that you return to the Emergency Department should you have concerns or if your condition changes or worsens in any way. You were seen today for an instance of vaginal bleeding. Your beta-hCG is at an expected range. Recommend you follow-up with your WALL CRANE OPERATOR for repeat beta-hCG testing later this week. If you have worsening pain or symptoms or bleeding, return to the emergency room Stand Alone Forms: Work/School Release Coding Level of Care Code ED Certified Hyperbaric Technician for Deshawn Brasher
[2023-08-28 14:17] LABS: Add Urine Microscopic? NO; Charge for UA Resulting for Rev
[2023-08-28 14:22] LABS: Bilirubin Urine Neg (Negative); Blood Urine Neg (Negative); Glucose Urine UA Norm (Normal); Ketones Urine Negative (Negative); Leukocyte Esterase Urine Negative (Negative); Nitrate Urine Negative (Negative); Protein Urine Neg (Negative); Specific Gravity, Urine 1.025 (1.005-1.030); Urine Appearance Clear (CLEAR); Urine Color Yellow (Yellow); Urobilinogen Urine Norm (Negative); pH Urine 5 (5-7)
[2023-08-28 16:11] VITALS: BP 104/64; PULSE 82; RESP 15; O2SAT 96
[2023-08-28 16:28] LABS: Basophils % 0.2 %; Eosinophils # 0.3 10^3/uL (0.0-0.8); Eosinophils % 2.7 %; Lymphocytes % 23.9 %; Mean Corpuscular HGB Conc 35.3 g/dL (30-55); Mean Corpuscular Hemoglobin 33.1 pg (27-33); Mean Corpuscular Volume 93.9 fl (85-98); Mean Platelet Volume 10.9 fL (7.4-10.4); Monocytes # 0.9 10^3/uL (0.2-0.9); Monocytes % 6.9 %; Neutrophils # 8.18 10^3/uL (1.8-7.7); Neutrophils % 65.7 %; Nucleated Red Blood Cells % 0 %; Platelet Count 211 10^3/cmm (157-399); Red Blood Count 4.26 10^6/uL (3.85-5.65); Red Cell Distribution Width 11.7 % (12.1-15.1); White Blood Count 12.45 10^3/uL (3.29-11.43)
[2023-08-28 16:48] LABS: Alanine Aminotransferase 22 U/L (0-33); Albumin Level 4.3 g/dL (3.5-5.2); Alkaline Phosphatase 75 U/L (35-105); Anion Gap 11.8 (5-19); Aspartate Amino Transferase 17 U/L (0-32); Blood Urea Nitrogen 16 mg/dL (6-20); Carbon Dioxide 24 mmol/L (22-29); Chloride 105 mmol/L (98-107); Globulin 3.1 g/dL (1.3-4.6); Glomerular Filtration Rate 71.3 mL/min (90-130); Glucose 79 mg/dL (65-115); Osmolality Calculated 284 mOsm/kg (285-295); Potassium 3.8 mmol/L (3.5-5.1); Sodium 137 mmol/L (136-145); Total Bilirubin 0.3 mg/dL (0.15-1.2); Total Protein 7.4 g/dL (6.6-8.7)
[2023-08-28 18:02] VITALS: BP 130/79; PULSE 80; RESP 17; O2SAT 98
== END 2023-08-28 18:03 | disposition home or self-care (01) ==
PROVIDERS: Emergency Provider Family Medicine; PCP Nurse Practitioner
DX: O20.9 Hemorrhage in early pregnancy, unspecified (principal); Z3A.10 10 weeks gestation of pregnancy; O99.331 Smoking (tobacco) complicating pregnancy, first trimester; F17.210 Nicotine dependence, cigarettes, uncomplicated
CPT/HCPCS: 80053; 81003; 84702; 85025; 99283

== ENCOUNTER → 2023-09-08 07:53 | Outpatient (BNVA) | payer OTHER, BC, MEDICAID, SELFPAY | PROVIDERS: PCP Nurse Practitioner; Visit Provider Nurse Practitioner Women's Health | DX: Z34.90 Encounter for supervision of normal pregnancy, unspecified, unspecified trimester (principal) | CPT/HCPCS: 76801 ==

== ENCOUNTER → 2023-09-27 07:52 | Outpatient (BNVA) | payer OTHER, BC, MEDICAID, SELFPAY | PROVIDERS: PCP Nurse Practitioner; Visit Provider Nurse Practitioner Women's Health | DX: O21.9 Vomiting of pregnancy, unspecified (principal); Z3A.00 Weeks of gestation of pregnancy not specified | CPT/HCPCS: 80307; 82950; 84315; 84443; 86592; 86762; 86803; 87086; 87340; 87491; 87591; 87806 ==

== ENCOUNTER → 2023-10-11 08:18 | Outpatient (BNVA) | payer OTHER, BC, MEDICAID, SELFPAY | PROVIDERS: PCP Nurse Practitioner; Visit Provider Obstetrics & Gynecology | DX: Z34.91 Encounter for supervision of normal pregnancy, unspecified, first trimester (principal); Z3A.10 10 weeks gestation of pregnancy | CPT/HCPCS: 84315; 87624 ==

== ENCOUNTER → 2023-10-14 11:05 | Outpatient (BNVA) | payer OTHER, BC, MEDICAID, SELFPAY | PROVIDERS: PCP Nurse Practitioner; Visit Provider Obstetrics & Gynecology | DX: Z34.91 Encounter for supervision of normal pregnancy, unspecified, first trimester (principal); Z3A.12 12 weeks gestation of pregnancy | CPT/HCPCS: 83036 ==

== ENCOUNTER → 2023-11-09 13:08 | Outpatient (BNVA) | payer OTHER, BC, MEDICAID, SELFPAY | PROVIDERS: PCP Nurse Practitioner; Visit Provider Nurse Practitioner Women's Health | DX: Z34.92 Encounter for supervision of normal pregnancy, unspecified, second trimester (principal); Z3A.16 16 weeks gestation of pregnancy | CPT/HCPCS: 82105; 84315; 87491; 87591 ==

== ENCOUNTER 2023-12-05 19:32 | Outpatient (CLI) | payer OTHER, BC, MEDICAID, SELFPAY ==
[2023-12-05] VITALS (12 sets, daily range): BP systolic 104–119; BP diastolic 55–64; PULSE 73–97; BMI 33.1
[2023-12-05 21:01] LABS: Glucose Urine UA Trace (Normal); Ketones Urine Negative (Negative); Protein Urine 1+ (Negative); Specific Gravity, Urine 1.025 (1.005-1.030); Urine Appearance Clear (CLEAR); Urine Color Yellow (Yellow); pH Urine 5 (5-7)
[2023-12-05 21:02] LABS: Bacteria Urine 1+ /hpf; Bilirubin Urine Neg (Negative); Blood Urine Neg (Negative); Calcium Oxalate Crystals Urine 0-4 /hpf; Leukocyte Esterase Urine 2+ (Negative); Nitrate Urine Negative (Negative); Squamous Epithelial Cell Urine 55-80 /hpf (0-5); Urobilinogen Urine Norm (Negative); WBC Urine 55-80 /hpf (0-5)
[2023-12-05] MEDS: lactated ringers 1,000 ML 999 ML IV (22:12)
[2023-12-05] MEDS: ceFAZolin 2,000 mg SDV 2000 MG IVP (22:22)
== END 2023-12-05 23:24 | disposition home or self-care (01) ==
LOC: OPOB 19:39 → OBGYN 19:40
PROVIDERS: PCP Nurse Practitioner; Visit Provider Obstetrics & Gynecology
DX: O26.899 Other specified pregnancy related conditions, unspecified trimester (principal); Z3A.00 Weeks of gestation of pregnancy not specified; R52 Pain, unspecified; R42 Dizziness and giddiness
CPT/HCPCS: 81001; 99211; J0690; J7120

== ENCOUNTER → 2023-12-07 14:31 | Outpatient (BNVA) | payer OTHER, BC, MEDICAID, SELFPAY | PROVIDERS: PCP Nurse Practitioner; Visit Provider Obstetrics & Gynecology | DX: Z34.92 Encounter for supervision of normal pregnancy, unspecified, second trimester (principal); Z3A.20 20 weeks gestation of pregnancy | CPT/HCPCS: 76805 ==

== ENCOUNTER → 2024-01-06 14:16 | Outpatient (BNVA) | payer OTHER, BC, MEDICAID, SELFPAY | PROVIDERS: PCP Nurse Practitioner; Visit Provider Nurse Practitioner Women's Health | DX: Z36.2 Encounter for other antenatal screening follow-up (principal); Z3A.24 24 weeks gestation of pregnancy | CPT/HCPCS: 76816; 84315 ==

== ENCOUNTER → 2024-02-09 09:00 | Outpatient (BNVA) | payer OTHER, BC, MEDICAID, SELFPAY | PROVIDERS: PCP Nurse Practitioner; Visit Provider Nurse Practitioner Women's Health | DX: Z34.90 Encounter for supervision of normal pregnancy, unspecified, unspecified trimester (principal); Z3A.00 Weeks of gestation of pregnancy not specified | CPT/HCPCS: 82950 ==

== ENCOUNTER → 2024-03-13 13:46 | Outpatient (BNVA) | payer OTHER, BC, MEDICAID, SELFPAY | PROVIDERS: PCP Nurse Practitioner; Visit Provider Obstetrics & Gynecology | DX: Z34.93 Encounter for supervision of normal pregnancy, unspecified, third trimester (principal); Z3A.34 34 weeks gestation of pregnancy | CPT/HCPCS: 76816; 84315; 85025 ==

== ENCOUNTER → 2024-03-27 13:26 | Outpatient (BNVA) | payer OTHER, BC, MEDICAID, SELFPAY | PROVIDERS: PCP Nurse Practitioner; Visit Provider Obstetrics & Gynecology | DX: O26.891 Other specified pregnancy related conditions, first trimester (principal); Z3A.10 10 weeks gestation of pregnancy | CPT/HCPCS: 84315; 87081 ==

== ENCOUNTER → 2024-04-12 13:10 | Outpatient (BNVA) | payer OTHER, BC, MEDICAID, SELFPAY | PROVIDERS: PCP Nurse Practitioner; Visit Provider Obstetrics & Gynecology | DX: O09.90 Supervision of high risk pregnancy, unspecified, unspecified trimester (principal); Z3A.00 Weeks of gestation of pregnancy not specified | CPT/HCPCS: 76816; 84315 ==

== ENCOUNTER → 2024-04-17 13:45 | Outpatient (BNVA) | payer OTHER, BC, MEDICAID, SELFPAY | PROVIDERS: PCP Nurse Practitioner; Visit Provider Obstetrics & Gynecology | DX: O09.90 Supervision of high risk pregnancy, unspecified, unspecified trimester (principal); Z3A.00 Weeks of gestation of pregnancy not specified | CPT/HCPCS: 84315 ==

== ENCOUNTER 2024-04-21 08:29 | Outpatient (CLI) | payer OTHER, BC, MEDICAID, SELFPAY ==
[2024-04-21 08:37] VITALS: BP 133/74; PULSE 96
[2024-04-21 08:40] VITALS: BMI 36.6
[2024-04-21 08:57] LABS: Nitrazine Paper, PH Negative
[2024-04-21 09:00] VITALS: BP 113/64; PULSE 84
[2024-04-21 09:20] VITALS: BP 114/71; PULSE 88
[2024-04-21 09:40] VITALS: BP 130/64; PULSE 82
[2024-04-21 10:20] VITALS: BP 121/65; PULSE 85
== END 2024-04-21 10:35 | disposition home or self-care (01) ==
LOC: OPOB 08:29 → OBGYN 08:30
PROVIDERS: Obstetrics & Gynecology; PCP Nurse Practitioner; Visit Provider Obstetrics & Gynecology
DX: O26.899 Other specified pregnancy related conditions, unspecified trimester (principal); Z3A.00 Weeks of gestation of pregnancy not specified; R10.9 Unspecified abdominal pain; N89.8 Other specified noninflammatory disorders of vagina
CPT/HCPCS: 59025; 83986; 99211

== ENCOUNTER 2024-04-21 22:48 | Inpatient (IN) | payer OTHER, BC, MEDICAID, SELFPAY ==
[2024-04-21 22:15] VITALS: BP 143/78; PULSE 96
[2024-04-21 22:17] VITALS: TEMP 35.5
[2024-04-21 22:40] VITALS: BMI 36.6
[2024-04-21 22:55] LABS: Basophils % 0.2 %; Eosinophils # 0.1 10^3/uL (0.0-0.8); Eosinophils % 0.5 %; Hematocrit 35.3 % (36-47); Lymphocytes # 2.7 10^3/uL (0.8-4.8); Lymphocytes % 15.3 %; Mean Corpuscular HGB Conc 34.8 g/dL (30-55); Mean Corpuscular Hemoglobin 32.8 pg (27-33); Mean Corpuscular Volume 94.1 fl (85-98); Mean Platelet Volume 11.4 fL (7.4-10.4); Monocytes # 1.2 10^3/uL (0.2-0.9); Monocytes % 6.8 %; Neutrophils # 13.33 10^3/uL (1.8-7.7); Neutrophils % 76.6 %; Nucleated Red Blood Cells % 0 %; Platelet Count 210 10^3/cmm (157-399); Red Blood Count 3.75 10^6/uL (3.85-5.65); Red Cell Distribution Width 12.8 % (12.1-15.1); White Blood Count 17.39 10^3/uL (3.29-11.43)
[2024-04-21 23:09] VITALS: RESP 16
[2024-04-21] MEDS: fentaNYL 50 mcg/mL INJ 2mL IVP (23:09)
[2024-04-21] MEDS: lactated ringers 1,000 ML 125 ML IV (23:09)
[2024-04-21 23:33] VITALS: BP 124/66; PULSE 84
[2024-04-21] MEDS: acetaminophen 325 mg Tablet 650 MG PO (23:35)
[2024-04-22] VITALS (73 sets, daily range): BP systolic 104–158; BP diastolic 51–72; PULSE 78–110; RESP 16–17; TEMP 35.9–36.9; O2SAT 98–99
--- NOTE | 2024-04-22 00:41 | P.ANESASSM_ITS ---
Pre-Anesthetic Assessment Height/Weight: Height 1.65 m Weight 99.79 kg Temp Pulse Resp BP 95.9 F L 84 16 124/66 04/21/24 22:17 04/21/24 23:33 04/21/24 23:09 04/21/24 23:33 Epidural Familial anesthetic complications: None Was Beta Ricardo taken within 24 hours: N/A Was Clonidine taken within 24 hours: N/A Last intake: 1200 Solids Social Tobacco and No alcohol 1 pack(s) per day Exam alert, oriented x 3, clear to auscultation bilaterally and regular rate & rhythm Airway Submandibular: within normal limits Cervical ROM: within normal limits Mallampati: Class III Dentition: full History/ROS No significant history except as noted and No significant complaints Pulmonary None reported CV/HEM None reported None reported Hepatic None reported GI Gastroesophageal Reflux Disease Metabolic None reported Musc/skel Scoliosis Neuropsych Neuropathy Anesthetic Plan ASA status: 2 Anesthesia: General and Regional (specify below) (Epidural) Risk of > 500 ml blood loss (7ml/kg in children): Yes, adequate IV access and fluids planned Medications/Allergies Home Medications Medication Instructions Recorded Confirmed Last Taken Type PNV 153-FA 400 mcg-om3 35 mg-dha tab PO DAILY 08/24/23 04/17/24 04/20/24 22:00 History 25 mg-epa 5 mg-fish oil chew tablet ( Gummies) Allergies Allergy/AdvReac Type Severity Reaction Status Date / Time cocoa Allergy Unknown Verified 04/17/24 13:54 Penicillins Allergy swelling Verified 04/17/24 13:54 pork derived (porcine) Allergy Unknown Verified 04/17/24 13:54 barley AdvReac Severe ADR-Gastrointestinal Verified 04/17/24 13:54 Upset beef derived (bovine) AdvReac Severe ADR-Gastrointestinal Verified 04/17/24 13:54 Upset Current Medications Generic Name Dose Route Start Last Admin Trade Name Freq PRN Reason Stop Dose Admin Acetaminophen 650 mg 04/21/24 22:42 04/21/24 23:35 Acetaminophen 325 Mg Tablet PO 650 mg Q6H PRN Administration Mild pain or temp > 100.4 Fentanyl 25 - 100 mcg 04/21/24 22:42 04/21/24 23:09 Fentanyl 50 Mcg/Ml Inj 2ml IVP 25 mcg Q1H PRN Administration SEVERE PAIN Lactated Ringer's 1,000 mls @ 125 mls/hr 04/21/24 23:15 04/22/24 00:00 Lactated Ringers IV 999 mls/hr .Q8H MISHA Infusion PFSH Anesthesia Medical History Allergy to beef 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 Surgical History No pertinent past surgical history Family History Grandfather Hypertension Grandmother Diabetes Maternal grandmother Paternal grandmother Hypertension Stroke Mother Heart disease Hyperlipidemia Hypertension Stroke Sister Hypertension Heart disease Diabetes Family/Other Breast cancer maternal aunt Father Hypertension Denies family history of Colon cancer Ovarian cancer Uterine cancer Thyroid disease Social History Smoking and tobacco/nicotine status: former use of tobacco/nicotine Second hand smoke exposure: No Alcohol intake: unknown Substance/Drug Use: unknown Adopted: No Caregiver/support person: No Lives independently: Yes Household members: family Marital status: Single Number of children: 0 service: No Current occupational status: employed Current occupation: [employer] Pets and animals: Yes Do you think of yourself as: Straight/Heterosexual Current gender identity: Female Data Anesthesia 04/21/24 22:50 Short CBC 04/21/24 Range/Units 22:50 WBC 17.39 H (3.29-11.43) 10^3/uL Hgb 12.30 (11.27-16.99) g/dL Hct 35.3 L (36-47) % MCV 94.1 (85-98) fl Plt Count 210 (157-399) 10^3/cmm Neut % (Auto) 76.6 % Neut # (Auto) 13.33 H (1.8-7.7) 10^3/uL Cardiac Studies: 2 No Data to Display
[2024-04-22] MEDS: ROPivacaine syringe 100 MG/50 ML SYRINGE 10 MG EPIDURAL ×3 (01:05→12:10)
--- NOTE | 2024-04-22 01:15 | ANES.PROC ---
Anesthesia Procedures Procedure/Date: 04/22/24 Epidural: Time Out Performed: Yes Consents Signed: Procedure Consent and NPO Consent Consent: requested by attending/covering physician, from patient, risks and benefits reviewed and patient agrees to proceed Lumbar Level: L3-L4 Epidural position: sitting Epidural procedure: sterile prep of area (betadine), 1% lidocaine to numb the area (3 mLs), neg for paresthesia, test dose given, 1.5% xylocaine 1:200k epi (3 mLs/ 2 mLs), 0.2% Ropivacaine bolus ml (2 mLs), placed PCEA, no systemic response, sterile dressing applied, L.U.D. no apparent complications and 0.2% Ropiavacaine @ mls/hr (12) Additional Comments: HARMEET 5cm, catheter threaded to 11cm. Negative for CSF and blood on aspiration. Patient tolerated well.
--- NOTE | 2024-04-22 03:17 | PM.OPHPUD ---
Labor & Delivery H&P Update Date of Procedure: April 22, 2024 Date H&P Performed: 04/17/24 H&P update information: I have reviewed H&P completed within last 30 days, I have examined patient prior to procedure and Changes to prior documentation as noted here (cervix 6cm dialation) Admission Diagnosis:
[2024-04-22] MEDS: dextrose 5%-lactated ringers 1,000 ML 125 ML IV (08:53)
[2024-04-22] MEDS: oxytocin 30 UNIT/500 ML BAG IV (12:00)
--- NOTE | 2024-04-22 15:11 | P.PCNOB_ITS ---
Delivery Note: Date of delivery: April 22, 2024 Pre-delivery diagnoses: Term Post-delivery diagnoses: Term delivered Procedure: Spontaneous vaginal delivery Delivering Physician: Vazquez Marsh MD Estimated blood loss (mL): 300 Delivery: The patient was noted to be complete and pushing, so was placed in the dorsal lithotomy position, prepped and draped in the usual sterile fashion for a va ginal delivery. Pt. Noted to have epidural anesthesia. At 1435 the patient delivered a viable 40 weeks female weighing 3700 g with scores of 8 and 8 at one and five minutes, respectively. The vertex was delivered spontaneously over intact perineum. The patient was asked to push and the head delivered spontaneously in the CHRIST position, over an intact perineum. A nuchal cord was checked and none noted. The anterior shoulder delivered easily and the posterior shoulder followed. The remainder of the infant was easily delivered and the oropharynx and nasopharynx was bulb suctioned. The infant was noted to have spontaneous cry and spontaneous movement of all four extremities. The cord was clamped x 2 and cut and noted to have 2 arteries and one vein. The infant was passed to the mother's abdomen where nursing personnel were in attendance. The placenta delivered intact spontaneously and the uterus was explored. 20 units of Pitocin was placed in the IV bag to firm the uterus. Examination of the cervix and vaginal vault did not reveal any lacerations. Examination of the perineum showed second-degree laceration. The laceration was repaired with 3-0 Vicryl in the normal fashion in a running non locking fashion to reapproximate the laceration in layers. The patient tolerated this procedure well, and recovered in L&D with her infant in their LDR room. All sponge and needle counts were correct. Post-Delivery Status: Good and stable History History History 2 Term 0 0 Miscarriages/Ectopic 1 Living Children 0 A&P Assessment and plan (1) Term delivered: (2) anemia: Coding Level of Care Code Acute Code for Chg Fwd Diagnoses Term delivered O80 anemia O90.81
[2024-04-22] MEDS: ketorolac 30 mg/mL INJ IVP (15:36)
[2024-04-22] MEDS: HYDROcodone-acetaminophen 5-325 mg Tablet PO (15:39)
--- NOTE | 2024-04-22 17:50 | PC.NURSE ---
Epidural catheter removed. tip intact. tolerated well. band aid placed over site.
[2024-04-22] MEDS: benzocaine-menthol 78 gm Canister 1 SPRAY TOPICAL (17:58)
--- NOTE | 2024-04-22 18:32 | PC.NURSE ---
Pt up to bathroom without difficulty. Void in toilet. Lizbeth care demonstrated and repeated by pt. Dermoplast spray use discussed. Gown and pad changed. Pt then into wheelchair to nursery to see baby, and taken to OB10 for routine post care. Oriented to room and call light.
[2024-04-22] MEDS: ibuprofen 800 mg tablet PO (20:53)
[2024-04-23] MEDS: HYDROcodone-acetaminophen 5-325 mg Tablet PO (02:45)
[2024-04-23 03:13] LABS: Hematocrit 27.8 % (36-47); Mean Corpuscular HGB Conc 33.8 g/dL (30-55); Mean Corpuscular Hemoglobin 32.5 pg (27-33); Mean Corpuscular Volume 96.2 fl (85-98); Mean Platelet Volume 11.4 fL (7.4-10.4); Platelet Count 180 10^3/cmm (157-399); Red Blood Count 2.89 10^6/uL (3.85-5.65); Red Cell Distribution Width 12.8 % (12.1-15.1); White Blood Count 16.85 10^3/uL (3.29-11.43)
[2024-04-23 04:00] VITALS: BP 121/67; PULSE 100; TEMP 36.9
--- NOTE | 2024-04-23 07:18 | ANE.PACU2 ---
Inpatient post-anesthesia follow up: Airway intact: Yes Vital signs: Temperature 98.0 F Pulse Rate 87 Respiratory Rate 17 Blood Pressure 128/71 Pulse Oximetry 98 Oxygen Delivery Me thod Room Air Oxygen Flow Rate Fraction of Inspir ed Oxygen Hydration adequate: Yes Nausea and vomiting: No Pain level: 1 Mental status: Baseline Epidural Start/End: Epidural Start Date: 04/22/24 Epidural Start Time: 01:00 Epidural End Date: 04/22/24 Epidural End Time: 15:11
[2024-04-23] MEDS: PRENATAL VIT NO.130/IRON/FOLIC 1 EACH TABLET PO (08:34)
[2024-04-23] MEDS: docusate sodium 100 mg Capsule PO (08:34)
[2024-04-23] MEDS: ibuprofen 800 mg tablet PO ×2 (08:35→15:08)
[2024-04-23 09:26] VITALS: BP 120/66; PULSE 86; RESP 16; TEMP 36.9
--- NOTE | 2024-04-23 13:18 | PM.OBGYDC ---
Discharge Providers GEOGRAPHY INSTRUCTOR Date of Admission: 04/21/24 22:48 Date of Discharge: 04/23/24 Attending Provider at Admission: Vazquez Marsh MD Attending Provider at Discharge: Vazquez Marsh MD Primary Care Provider: ALDEN Murray Diagnoses at Discharge Discharge Diagnosis (1) Term delivered: Status: Acute Reason for Visit Reason for Visit: Ctx. Hospital Course Hospital Course Mrs. Fine 33-year-old female G2, P0 with an estimated gestational age of 40 weeks admitted to labor and delivery in active labor. She progressed with oxytocin augmentation to a spontaneous vaginal delivery without complications. She delivered a female with birthweight at 3700 g Marlon 10/27 overnight observation was uneventful. She is afebrile hemodynamically stable day 1. Tolerating diet well. Ambulating without difficulty. She was counseled regarding pelvic rest for 6 weeks (no sex, no tampons, no vaginal douches). Return to the emergency room if any fever, increased bleeding or pain. Information Peripartum Data: Delivery Method: Vaginal Physical Exam Narrative: GA; alert and oriented x 3 HEENT: normal Breasts: engorged Nipples - skin intact Lungs; clear to auscultation Heart: regular rhythm, no murmurs. Abd: Appropriately tender. BS+. Uterine fundus below umbilicus. No Fundal Tenderness. Perineum: normal lochia. Extremities: no edema, no cyanosis, no tenderness. Urinary Catheter Management: Ross: Cath Placed During This Visit: yes, but has since been removed by the nurse Reason for Continuing Indwelling Catheter: Decision to DC Catheter Urinary Catheter Date of Insertion: 04/22/24 Urinary Catheter Time of Insertion: : Date Urinary Catheter Removed: 04/22/24 Time Urinary Catheter Discontinued: 13:10 History History History 2 Term 0 0 Miscarriages/Ectopic 1 Living Children 0 Discharge Data Studies Completed and Pending Laboratory Results WBC 16.85 10^3/uL (3.29-11.43) H 04/23/24 03:10 RBC 2.89 10^6/uL (3.85-5.65) L 04/23/24 03:10 Hgb 9.40 g/dL (11.27-16.99) L 04/23/24 03:10 Hct 27.8 % (36-47) L 04/23/24 03:10 MCV 96.2 fl (85-98) 04/23/24 03:10 MCH 32.5 pg (27-33) 04/23/24 03:10 MCHC 33.8 g/dL (30-55) 04/23/24 03:10 RDW 12.8 % (12.1-15.1) 04/23/24 03:10 Plt Count 180 10^3/cmm (157-399) 04/23/24 03:10 MPV 11.4 fL (7.4-10.4) H 04/23/24 03:10 Neut % (Auto) 76.6 % 04/21/24 22:50 Lymph % (Auto) 15.3 % 04/21/24 22:50 Traverse % (Auto) 6.8 % 04/21/24 22:50 Eos % (Auto) 0.5 % 04/21/24 22:50 Baso % (Auto) 0.2 % 04/21/24 22:50 Neut # (Auto) 13.33 10^3/uL (1.8-7.7) H 04/21/24 22:50 Lymph # (Auto) 2.7 10^3/uL (0.8-4.8) 04/21/24 22:50 Traverse # (Auto) 1.2 10^3/uL (0.2-0.9) H 04/21/24 22:50 Eos # (Auto) 0.1 10^3/uL (0.0-0.8) 04/21/24 22:50 Baso # (Auto) 0.0 10^3/uL (0.0-0.1) 04/21/24 22:50 Nucleated RBC % (auto) 0 % 04/21/24 22:50 Nucleated RBCs # 0.0 /100WBC 04/21/24 22:50 Blood Type A Positive 04/21/24 22:50 Rho(D) Type Rh positive 04/21/24 22:50 Antibody Screen Negative 04/21/24 22:50 Vitals Last Vital Signs Temp 98.5 F 04/23/24 09:26 Pulse 86 04/23/24 09:26 Resp 16 04/23/24 09:26 BP 120/66 04/23/24 09:26 Pulse Ox 99 04/22/24 01:02 O2 Del Method Room Air 04/23/24 09:26 Results Labs OB ([facility]): Obstetrics US 04/12/24 Blood Type A Positive 04/21/24 Antibody Screen Negative 04/21/24 Hct 27.8 % (36-47) L 04/23/24 Hgb 9.40 g/dL (11.27-16.99) L 04/23/24 Rho(D) Type Rh positive 04/21/24 Plt Count 180 10^3/cmm (157-399) 04/23/24 Hep Bs Antigen Non-reactive (NON-REACTIVE) 09/27/23 Hep Bs Ag Confirmation Not Reportable 09/27/23 Hepatitis C Antibody Non-reactive (Nonreactive) 09/27/23 Rubella IgG Antibody 57.2 IU/mL (0.0-10.0) H 09/27/23 RPR Nonreactive (Nonreactive) 09/27/23 HIV 1&2 Ab & HIV 1 Ag Non-reactive (Non-Reactiv) 09/27/23 TSH 0.25 uIU/mL (0.27-4.20) L 09/27/23 C.trachomatis RNA (TMA) Not detected (NOT DETECTED) 11/09/23 N.gonorrhoeae RNA (TMA) Not detected (NOT DETECTED) 11/09/23 T. vaginalis Amp RNA Not detected (NOT DETECTED) 11/09/23 Chlamydia/GC Comment See note 11/09/23 Cystic Fibrosis Screen Negative 09/27/23 Glucose 1 Hr 50 gm 101 mg/dL (85-140) 02/09/24 Hemoglobin A1c 4.3 % (4.0-6.0) 10/14/23 Ser , Semi-Qnt 29062.00 mIU/mL 08/28/23 HCG, Qual Positive (Negative) H 08/24/23 Urine Opiates Screen Negative ng/mL (Negative) 09/27/23 Ur Barbiturates Screen Negative ng/mL (Negative) 09/27/23 Ur Phencyclidine Scrn Negative ng/mL (Negative) 09/27/23 Ur Amphetamines Screen Negative ng/mL (Negative) 09/27/23 U Benzodiazepines Scrn Negative ng/mL (Negative) 09/27/23 Urine Cocaine Screen Negative ng/mL (Negative) 09/27/23 U Marijuana (THC) Screen Negative ng/mL (Negative) 09/27/23 Micro Urine Specimen 09/27/23 Pap Smear Interpret See note 10/11/23 Discharge Plan Discharge Patient Disposition: Home Condition: Stable Prescriptions: New ferrous sulfate [Iron (ferrous sulfate)] 325 mg (65 mg iron) tablet 325 mg PO BID Qty: 60 0RF ibuprofen 800 mg tablet 800 mg PO TID PRN (Reason: pain) Qty: 60 0RF acetaminophen 325 mg capsule 325 mg PO Q4H PRN (Reason: fever or pain) Qty: 60 0RF Continued Gummies 400 mcg-35 mg- 25 mg-5 mg tablet,chewable 1 tab PO DAILY Discharge Orders: Discharge Order (Routine); Ordered 04/23/24 Ordered By: Vazquez Marsh Referrals: Vazquez Marsh MD [Physician] - HiAnurag MD [Physician] - 6 Weeks Discharge Diet: Soft Mechanical Discharge Activity: Limit activity as instructed Patient Instructions: Depression (DC), Bleeding (DC), Preeclampsia and Eclampsia After Delivery (GEN), Hemorrhage (DC), OB Discharge Report, OB Food/Drug Interaction Guide, OB Care at Home, Opioid Safety, OB Vaginal Deliveries - [facility] Activity Restrictions/Additional Instructions: 1. Please call [facility] on next working day to make your appointment in 6 weeks. 2. Please stay home until you come back to the clinic on first post-hospatilization check up. 3. Please follow instructions on your medications CAREFULLY. 4. If you have abdominal incision, do not cover it unless dressing is necessary because of drainage. OK to shower, but avoid bath. Leave steri-strips until they fall off. If they are still on one week after surgery, you may remove them. 5. If you had vaginal surgery or vaginal repair, Dr. Marsh may instruct you to take SITZ bath. 6. Yellow, blood tinged odorous vaginal discharge is usually normal after hysterectomy or vaginal surgeries. 7. No SEXUAL INTERCOURSE, tampons, or douches until you are completely released from the post-operative care. 8. Avoid constipation by eating right and maybe using some Metamucil or Milk of Magnesia. 9. All prescription refills are given during the working hours. Please do no wait till it runs out. Call the clinic at [phone] before your medication runs out. The clinic will get in touch with your doctor to prescribe medications if necessary. 10. Please remain within 40 mile radius from our hospital because emergencies do happen now and then during the post-operative period. 11. If you have stairs at home, take one step at a time slowly and minimize the number of trips. It helps to stay in one floor for the next few days. No lifting except what you can lift by one hand until you are released from the post-operative care. 12. Driving is discouraged until you are well healed. It may be 3-4 weeks before you feel strong enough to drive. You should be able to turn and look through the rear window without pain and you should be able to push the brake pedal very hard without pain before you drive. No fast rules, but SAFETY should be your primary concern. DO NOT drive if you are on sedating medications such as narcotics. 13. Call the clinic (during working hours) to make urgent appointment or go to the Emergency room, if any of the following occurs: i. Vaginal bleeding becomes heavy, more than a period. ii. Incision becomes red and sore, or drains pus. iii. Your TEMPERATURE is over 100.4F or you have chill. iv. IV site becomes red and swollen (a little ``knot?? is usually OK) v. Persistent nausea and vomiting vi. Persistent constipation or diarrhea vii. Rash or allergic reaction to medications. Discharge Attestations GEOGRAPHY INSTRUCTOR Time Spent in Discharge Care*: greater than 30 min Coding Level of Care Code Acute Code for Chg Fwd Diagnoses Term delivered O80
[2024-04-23 15:09] VITALS: BP 128/71; PULSE 87; RESP 17; TEMP 36.6; TEMP 36.7
[2024-04-23 15:30] VITALS: BP 128/71; PULSE 87; RESP 17; TEMP 36.7; O2SAT 98
== END 2024-04-23 15:30 | disposition home or self-care (01) | DRG 807 ==
LOC: OPOB 22:48 → OBGYN 22:48
PROVIDERS: Admitting Provider Obstetrics & Gynecology; PCP Nurse Practitioner; Visit Provider Obstetrics & Gynecology
DX: O48.0 Post-term pregnancy (principal); Z37.0 Single live birth; Z3A.40 40 weeks gestation of pregnancy; O70.1 Second degree perineal laceration during delivery; O99.284 Endocrine, nutritional and metabolic diseases complicating childbirth; E28.2 Polycystic ovarian syndrome; O75.89 Other specified complications of labor and delivery; G62.9 Polyneuropathy, unspecified; M41.9 Scoliosis, unspecified; K21.9 Gastro-esophageal reflux disease without esophagitis; Z87.891 Personal history of nicotine dependence
CPT/HCPCS: 36415; 51702; 59025; 59409; 85025; 85027; 86850; 86900; 99211; J1885; J2590; J2795; J3010; J7120; J7121

== ENCOUNTER → 2024-05-31 13:38 | Outpatient (BNVA) | payer OTHER, BC, MEDICAID, SELFPAY | PROVIDERS: PCP Nurse Practitioner; Visit Provider Nurse Practitioner Women's Health | DX: O90.81 Anemia of the puerperium (principal) | CPT/HCPCS: 85025 ==

== ENCOUNTER → 2024-08-09 07:44 | Outpatient (BNVA) | payer OTHER, BC, MEDICAID, SELFPAY | PROVIDERS: PCP Nurse Practitioner; Visit Provider Nurse Practitioner Women's Health | DX: N91.2 Amenorrhea, unspecified (principal); Z32.01 Encounter for pregnancy test, result positive | CPT/HCPCS: 81025; 84702; 86850; 86900 ==

== ENCOUNTER → 2024-08-16 13:34 | Outpatient (BNVA) | payer OTHER, BC, MEDICAID, SELFPAY | PROVIDERS: PCP Nurse Practitioner; Visit Provider Nurse Practitioner Women's Health | DX: O26.891 Other specified pregnancy related conditions, first trimester (principal); Z3A.01 Less than 8 weeks gestation of pregnancy | CPT/HCPCS: 76801 ==

== ENCOUNTER → 2024-09-05 13:23 | Outpatient (BNVA) | payer OTHER, BC, MEDICAID, SELFPAY | PROVIDERS: PCP Nurse Practitioner; Visit Provider Nurse Practitioner Women's Health | DX: Z34.90 Encounter for supervision of normal pregnancy, unspecified, unspecified trimester (principal) | CPT/HCPCS: 80307; 84315; 84443; 85025; 86592; 86762; 86803; 86850; 86900; 87086; 87340; 87491; 87591; 87661; 87806 ==

== ENCOUNTER → 2024-09-18 10:03 | Outpatient (BNVA) | payer OTHER, BC, MEDICAID, SELFPAY | PROVIDERS: PCP Nurse Practitioner; Visit Provider Obstetrics & Gynecology | DX: Z34.80 Encounter for supervision of other normal pregnancy, unspecified trimester (principal) | CPT/HCPCS: 84315 ==

== ENCOUNTER → 2024-10-11 14:03 | Outpatient (BNVA) | payer OTHER, BC, MEDICAID, SELFPAY | PROVIDERS: PCP Nurse Practitioner; Visit Provider Nurse Practitioner Women's Health | DX: Z34.82 Encounter for supervision of other normal pregnancy, second trimester (principal) | CPT/HCPCS: 82105; 82950; 84315 ==

== ENCOUNTER → 2024-11-07 14:29 | Outpatient (BNVA) | payer OTHER, BC, MEDICAID, SELFPAY | PROVIDERS: PCP Nurse Practitioner; Visit Provider Obstetrics & Gynecology | DX: O26.892 Other specified pregnancy related conditions, second trimester (principal); Z3A.20 20 weeks gestation of pregnancy | CPT/HCPCS: 76805 ==

== ENCOUNTER → 2024-11-15 15:49 | Outpatient (BNVA) | payer OTHER, BC, MEDICAID, SELFPAY | PROVIDERS: PCP Nurse Practitioner; Visit Provider Obstetrics & Gynecology | DX: Z34.90 Encounter for supervision of normal pregnancy, unspecified, unspecified trimester (principal) | CPT/HCPCS: 84315 ==

== ENCOUNTER 2024-12-14 20:40 | Outpatient (CLI) | payer OTHER, BC, MEDICAID, SELFPAY ==
[2024-12-14 20:40] VITALS: BMI 34.9
--- NOTE | 2024-12-14 21:05 | USR_ITS ---
PROCEDURE INFORMATION: Exam: US , Limited Exam date and time: 12/14/2024 9:47 PM Age: 34 years old Clinical indication: Lmp or gestational age (in weeks): 25; Antepartum complications; Bleeding; LABS AND CLINICAL REPORTS: Gestational age (Established): 25 w 2 d Estimated due date (Established): 03/27/2025 TECHNIQUE: Imaging protocol: Real-time ultrasound of the maternal uterus with image documentation. Exam focused on the clinical indication. COMPARISON: US OB >= 14 weeks fetus [id number] 11/07/2024 2:33 PM FINDINGS: Gestation: There is a single live intrauterine gestation. Breech presentation is noted. Normal volume of amniotic fluid is present. heart rate: 145 bpm The placenta is anteriorly situated with no evidence of previa. Biometric measurements have not been obtained. MATERNAL: Cervix: Cervical length measures 4.1 cm. The cervix is closed. US/US OB limited [id number] IMPRESSION: 1. There is a single live intrauterine . 2. The cervix appears to be closed measuring 4.1 cm in length.
[2024-12-14 21:24] LABS: Glucose Urine UA Negative (Normal); Nitrate Urine Negative (Negative); Specific Gravity, Urine 1.012 (1.005-1.030)
--- NOTE | 2024-12-14 21:59 | P.SS_ITS ---
Short Stay Summary Providers Date of Admit/Discharge: 12/14/24 Attending Provider: Ben Torres MD Primary Care Provider: TITO Murray-C Chief Complaint: Bleeding HPI History of Present Illness Parisa Fine is a 34 year old -0-1-1 at 25.2 weeks gestation by 8.1 week ultrasound and consistent with LMP. complicated by advanced maternal age, smoker, and now placental abruption. The patient states that she was at home when she suddenly started to have bleeding at 7:30 PM on the evening of 12/14/2024. The patient noted a significant amount of blood. She did not have any contractions with this. She has continued to feel movement. She denies recent intercourse or abdominal trauma. heart tones have been in the mid 140s with moderate variability and good accelerations with category 1 tracing. No contractions have been noted. Review of Systems Narrative: General: Denies fevers, chills, fatigue, malaise. Ears/Nose/Throat: Denies nasal congestion, sore throat. Cardiovascular: Denies chest pains, peripheral edema. Respiratory: Denies cough, wheezing. Gastrointestinal: Denies nausea, vomiting, diarrhea, constipation, abdominal pain. Genitourinary: Denies dysuria. Skin: Denies rash. Home Meds/Allergies Home Medications and Allergies Home Medications ?Medication ?Instructions ?Recorded ?Confirmed ?Type PNV 153-FA 400 mcg-om3 35 mg-dha 1 tab PO 08/09/24 History 25 mg-epa 5 mg-fish oil chew tablet ( Gummies) Allergies Allergy/AdvReac Type Severity Reaction Status Date / Time cocoa Allergy Unknown Verified 12/14/24 22:49 Penicillins Allergy swelling Verified 12/14/24 22:49 pork derived (porcine) Allergy Unknown Verified 12/14/24 22:49 barley AdvReac Severe ADR-Gastrointestinal Verified 12/14/24 22:49 Upset beef derived (bovine) AdvReac Severe ADR-Gastrointestinal Verified 12/14/24 22:49 Upset PFSH Acute PFSH: Medical History History of migraine with in the last year No pertinent past medical history neghx: htn, dm, thyroid, dvt/pe PCP: [facility] Allergy to beef 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 Surgical History No pertinent past surgical history Family History Grandfather Hypertension Grandmother Diabetes Maternal grandmother Paternal grandmother Hypertension Stroke Mother Heart disease Hyperlipidemia Hypertension Stroke Sister Hypertension Heart disease Diabetes Family/Other Breast cancer maternal aunt Father Hypertension Denies family history of Colon cancer Ovarian cancer Uterine cancer Thyroid disease Social History (Updated 12/14/24 @ 22:49 by Ben Torres MD) Smoking and tobacco/nicotine status: current every day tobacco/nicotine user cigarettes [ Other cigarette details: 3 daily] Second hand smoke exposure: No Alcohol intake: never Substance/Drug Use: never Adopted: No Caregiver/support person: No Lives independently: Yes Household members: family Marital status: Single Number of children: 0 service: No Current occupational status: employed Current occupation: [employer] Pets and animals: Yes Do you think of yourself as: Straight/Heterosexual Current gender identity: Female Physical Exam Narrative: General: Alert and oriented x3 Eyes: Pupils equal round and reactive to light and accommodation Mouth: Mucous membranes moist, pharynx non-erythematous Cardiac: Regular rate and rhythm without murmurs Lungs: Clear to auscultation bilaterally without wheezes, crackles or rhonchi Abdomen: Soft, minimal right upper quadrant tenderness without rebound. Oakes sign negative, fundus consistent with gestational age. : The perineum is covered with blood, there is blood noted in the vaginal vault that is dark in color. No active bleeding noted from the cervix with sterile spec exam. Extremities: Trace edema in the bilateral lower extremities Hospital Course Admission Diagnoses 1. Intrauterine at 25.2 weeks gestation by 8.1-week ultrasound inconsistent with unsure LMP 2. Advanced maternal age 3. Smoker 4. Now with placental abruption Hospital Course The patient was admitted to triage and noted to have blood staining her perineum as well as blood in the vaginal vault. No active bleeding was noted from the cervical os at approximately 10:15 PM on a sterile spec exam. heart tones have been in the mid 140s with moderate variability and good accelerations with a category 1 tracing. The patient has not noted any contractions. 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 They are currently not painful. The patient has been given 1 dose of betamethasone 12 mg IM. Vital signs are currently stable. Blood work is attached and shows a hemoglobin of 11.9 with white blood cell count of 13 and platelets of 153. D-dimer was elevated at 1.28. Urine drug screen is currently pending. Please see labs that are attached as well. Because of the risk for needing to deliver for placental abruption, it was felt best to transfer the patient to a higher level of care where a NICU would be available. I spoke with Dr. Temo Shelton from [facility] in [facility] who agreed to accept the patient in transfer. We appreciate his assistance with caring for this patient. Currently the patient is stable for transfer. The patient and her significant other are in agreement with the current plan of care. SSS Data Data Completed and Pending: Results Labs OB ([facility]): Obstetrics US 04/12/24 Blood Type A Positive 09/05/24 Antibody Screen Negative 09/05/24 Hct, (36-47) 38.8 % 09/05/24 Hgb, (11.27-16.99) 13.50 g/dL 09/05/24 Rho(D) Type Rh positive 09/05/24 Plt Count, (157-39 9) 208 10^3/cmm 09/05/24 Hep Bs Antigen, (N onreactive) Non-reactive 09/05/24 Hepatitis C Antibo dy, (Nonreactive) Non-reactive 09/05/24 Rubella IgG Antibo dy, (0.0-10.0) 64.3 IU/mL H 09/05/24 RPR, (Nonreactive) Nonreactive 09/05/24 HIV 1&2 Ab & HIV 1 Ag, (Non-Reactiv) Non-reactive 09/05/24 TSH, (0.27-4.20) 0.62 uIU/mL 09/05/24 Glucose 1 Hr 50 gm , (85-140) 98 mg/dL 10/11/24 Ser , Marcelina i-Qnt 89665.00 mIU/mL 08/09/24 HCG, Qual, (Negati ve) Positive H 08/09/24 Urine Opiates Scre en, (Negative) Negative ng/mL 09/05/24 Ur Barbiturates Sc reen, (Negative) Negative ng/mL 09/05/24 Ur Phencyclidine S crn, (Negative) Negative ng/mL 09/05/24 Ur Amphetamines Sc reen, (Negative) Negative ng/mL 09/05/24 U Benzodiazepines Scrn, (Negative) Negative ng/mL 09/05/24 Urine Cocaine Scre en, (Negative) Negative ng/mL 09/05/24 U Marijuana (THC) Screen, (Negative) Negative ng/mL 09/05/24 Micro Urine Specim en 09/05/24 PAP 10/11/2023--[facility]--> NILM, negative HP V 12/20/2017---------------> NILM Denies any abnormal paps. OB Ultrasound 11/07/24 Findings: There is a single intrauterine in the vertex presentation. The placenta is Anterior and grade 0. There is a normal amount of amnionic fluid. The heart rate is 144 beats per minute. The cervix measures 5.96 cm and is closed Measurements of growth and development: BPD: 4.8 cm 20 weeks 3 days HC: 17.8 cm 20 weeks 2 days AC: 15.4 cm 20 weeks 4 days FL: 3.2 cm 20 weeks 0 days The estimated weight is 344; 62nd percentile The estimated gestational age is 20 weeks 2 days with an BETHANY of approximately 03/25/2025. anatomy show a normal stomach, kidneys, bladder, cord insertion, three- vessel cord, entire spine, four-chamber heart, lateral cerebral ventricles, cerebellum and cisterna magna, profile, nasal bone, nose and lips, US/US OB >= 14 weeks fetus [id number] Impression: 1. Single intrauterine in lucas janice presentation. 2. Estimated gestational age 20 weeks 2 days with an BETHANY of 03/25/2025. 3. heart rate 144 beats per minut e. 08/16/2024 FINDINGS: GESTATION: Gestation: Single intrauterine gestation with presence of 3 mm yolk sac and pole. Embryo/ cardiac activity (BPM): FHR 159 bpm. Extra-embryonic membranes/Placenta: No findings to indicate subchorionic hemorrhage or hematoma. Amniotic/Chorionic fluid: Amniotic and extra-amniotic fluid are normal for gestational age. BIOMETRY: Gestational age (AUA): 8 weeks 1 day Estimated due date (AUA): 03/27/2025. [place] rump length (CRL): CRL 1.65 cm 8 weeks 1 day > 97.5 percentile. MATERNAL: Uterus: Uterus measures 7.6 x 9.6 x 14.25 cm, anteverted and unremarkable. Right ovary/adnexa: Right ovary measures 3 x 2.2 x 1.5 cm with a volume of 5 cc. Right ovary appears unremarkable. Right ovarian flow is seen. Left ovary/adnexa: Left ovary measures 2.9 x 1.7 x 2.1 cm with a volume of 5 cc. Left ovary appears unremarkable. Left ovarian flow is seen. Intraperitoneal space: No free fluid identified. IMPRESSION: Single intrauterine gestation of 8 weeks 1 day by CRL with BETHANY 03/27/2025. FHR 159 bpm. Pending at discharge Category Date Time Status Complete Blood Co unt w/Auto Stat Lab 12/14/24 21:35 Ordered Comprehensive Met abolic Panel Stat Lab 12/14/24 21:35 Ordered D Dimer Stat Lab 12/14/24 21:36 Ordered Drug Screen, Urin e ([facility]) Stat Lab 12/14/24 21:35 Uncollected Prothrombin Time INR Stat Lab 12/14/24 21:36 Ordered Type and Screen R outine Lab 12/14/24 21:40 Ordered Urine Culture Sta t Lab 12/14/24 21:09 Received US OB limited [id number] Routine Ultrasound 12/14/24 21:05 Taken Discharge Plan Discharge Patient Disposition: Home Prescriptions: No Action Gummies 400 mcg-35 mg- 25 mg-5 mg tablet,chewable 1 tab PO ferrous sulfate [Iron (ferrous sulfate)] 325 mg (65 mg iron) tablet 325 mg PO BID Qty: 60 0RF Print Language: Chinese Attestations Medical Necessity Statement*: The patient was admitted for placental abruption and transferred shortly after. Her stable not crossed 2 midnights. Time Spent in Patient Care*: critical care time Critical Care Time (min): 60 Quality Metrics Clinical Quality Measures: [ No reported AMI, CVA or VTE this stay ] Coding Level of Care Code Acute Code for Chg Fwd History History History 3 Term 1 0 Miscarriages/Ectopic 2 Living Children 1
[2024-12-14 22:19] LABS: Hematocrit 33.4 % (36-47); Hemoglobin 11.90 g/dL (11.27-16.99); Mean Corpuscular HGB Conc 35.6 g/dL (30-55); Mean Corpuscular Hemoglobin 33.8 pg (27-33); Mean Corpuscular Volume 94.9 fl (85-98); Nucleated Red Blood Cells % 0 %; Platelet Count 153 10^3/cmm (157-399); Red Blood Count 3.52 10^6/uL (3.85-5.65); White Blood Count 13.57 10^3/uL (3.29-11.43)
[2024-12-14 22:35] LABS: INR 0.85 (0.8-1.2); Prothrombin Time 12.20 SECONDS (12.1-14.9)
[2024-12-14 22:41] LABS: Alanine Aminotransferase 8 U/L (0-33); Albumin Level 3.5 g/dL (3.5-5.2); Alkaline Phosphatase 74 U/L (35-105); Anion Gap 15.8 (5-19); Aspartate Amino Transferase 13 U/L (0-32); Blood Urea Nitrogen 9 mg/dL (6-20); Calcium 8.9 mg/dL (8.5-10.5); Carbon Dioxide 23 mmol/L (22-29); Chloride 104 mmol/L (98-107); Globulin 2.9 g/dL (1.3-4.6); Glucose 132 mg/dL (65-115); Osmolality Calculated 289 mOsm/kg (285-295); Potassium 3.8 mmol/L (3.5-5.1); Sodium 139 mmol/L (136-145); Total Protein 6.4 g/dL (6.6-8.7)
[2024-12-14 22:43] LABS: Creatinine Clr Calc Pharmacy 221.9257
[2024-12-14] MEDS: betamethasone susp 6 mg/mL 5 mL 12 MG IM (22:58)
[2024-12-14 23:06] VITALS: BP 116/68; PULSE 85; O2SAT 98
[2024-12-15 00:33] LABS: PCP Screen Urine Negative (Negative)
== END 2024-12-14 23:40 | disposition intermediate care facility (04) ==
LOC: OPOB 20:45 → OBGYN 20:47
PROVIDERS: PCP Nurse Practitioner; Visit Provider Family Medicine
DX: O26.859 Spotting complicating pregnancy, unspecified trimester (principal); Z3A.00 Weeks of gestation of pregnancy not specified
CPT/HCPCS: 76815; 80053; 80306; 81001; 85025; 85378; 85610; 86850; 86900; 87086; 96372; 99211; J0702; J7121; J9999

== ENCOUNTER → 2024-12-25 11:26 | Outpatient (BNVA) | payer OTHER, BC, MEDICAID, SELFPAY | PROVIDERS: PCP Nurse Practitioner; Visit Provider Nurse Practitioner Women's Health | DX: Z34.90 Encounter for supervision of normal pregnancy, unspecified, unspecified trimester (principal) | CPT/HCPCS: 84315 ==

== ENCOUNTER → 2025-01-09 13:48 | Outpatient (BNVA) | payer OTHER, BC, MEDICAID, SELFPAY | PROVIDERS: PCP Nurse Practitioner; Visit Provider Nurse Practitioner Women's Health | DX: Z34.90 Encounter for supervision of normal pregnancy, unspecified, unspecified trimester (principal) | CPT/HCPCS: 81000; 82950 ==

== ENCOUNTER → 2025-01-18 07:55 | Outpatient (BNVA) | payer OTHER, BC, MEDICAID, SELFPAY | PROVIDERS: PCP Nurse Practitioner; Visit Provider Obstetrics & Gynecology | DX: Z34.90 Encounter for supervision of normal pregnancy, unspecified, unspecified trimester (principal); E28.2 Polycystic ovarian syndrome | CPT/HCPCS: 82951; 82952; 84315 ==

== ENCOUNTER 2025-02-04 16:56 | Outpatient (CLI) | payer OTHER, BC, MEDICAID, SELFPAY ==
[2025-02-04 17:00] VITALS: BMI 36.1
[2025-02-04 17:04] VITALS: BP 135/64; PULSE 103
[2025-02-04 17:12] LABS: Glucose Urine UA Negative (Normal); Nitrate Urine Negative (Negative); Specific Gravity, Urine 1.011 (1.005-1.030)
[2025-02-04 17:19] VITALS: BP 132/62; PULSE 101
[2025-02-04 17:25] LABS: UA Slide Review UA Slide Review Perf
[2025-02-04 17:49] VITALS: BP 126/60; PULSE 98
[2025-02-04] MEDS: nitrofurantoin SR (BID) 100 mg Capsule PO (17:56)
[2025-02-04 18:06] VITALS: BP 121/62; PULSE 91
[2025-02-04 18:19] VITALS: BP 126/70; PULSE 85
[2025-02-04 18:34] VITALS: BP 117/66; PULSE 86
== END 2025-02-04 18:46 | disposition home or self-care (01) ==
LOC: OPOB 16:57 → OBGYN 16:58
PROVIDERS: PCP Nurse Practitioner; Visit Provider Obstetrics & Gynecology
DX: O26.899 Other specified pregnancy related conditions, unspecified trimester (principal); Z3A.00 Weeks of gestation of pregnancy not specified
CPT/HCPCS: 81001; 87086; J9999

== ENCOUNTER → 2025-02-12 13:26 | Outpatient (BNVA) | payer OTHER, BC, MEDICAID, SELFPAY | PROVIDERS: PCP Nurse Practitioner; Visit Provider Obstetrics & Gynecology | DX: Z34.90 Encounter for supervision of normal pregnancy, unspecified, unspecified trimester (principal) | CPT/HCPCS: 84315 ==

== ENCOUNTER → 2025-02-28 16:09 | Outpatient (BNVA) | payer OTHER, BC, MEDICAID, SELFPAY | PROVIDERS: PCP Nurse Practitioner; Visit Provider Obstetrics & Gynecology | DX: O09.513 Supervision of elderly primigravida, third trimester (principal); Z3A.36 36 weeks gestation of pregnancy | CPT/HCPCS: 84315; 87081 ==

== ENCOUNTER → 2025-03-07 16:21 | Outpatient (BNVA) | payer OTHER, BC, MEDICAID, SELFPAY | PROVIDERS: PCP Nurse Practitioner; Visit Provider Obstetrics & Gynecology | DX: Z34.90 Encounter for supervision of normal pregnancy, unspecified, unspecified trimester (principal) | CPT/HCPCS: 84315 ==

== ENCOUNTER 2025-03-09 21:09 | Outpatient (CLI) | payer OTHER, BC, MEDICAID, SELFPAY ==
[2025-03-09] VITALS (7 sets, daily range): BP systolic 108–132; BP diastolic 56–78; PULSE 84–99; RESP 17; TEMP 36.7; O2SAT 98; BMI 38.4
== END 2025-03-09 22:39 | disposition home or self-care (01) ==
LOC: OPOB 21:09 → OBGYN 21:10
PROVIDERS: PCP Nurse Practitioner; Visit Provider Family Medicine
DX: O26.899 Other specified pregnancy related conditions, unspecified trimester (principal); Z3A.00 Weeks of gestation of pregnancy not specified; R10.9 Unspecified abdominal pain
CPT/HCPCS: 59025; 99211

== ENCOUNTER → 2025-03-12 14:52 | Outpatient (BNVA) | payer OTHER, BC, MEDICAID, SELFPAY | PROVIDERS: PCP Nurse Practitioner; Visit Provider Obstetrics & Gynecology | DX: Z34.90 Encounter for supervision of normal pregnancy, unspecified, unspecified trimester (principal); Z3A.38 38 weeks gestation of pregnancy | CPT/HCPCS: 84315 ==

== ENCOUNTER 2025-03-17 07:42 | Outpatient (CLI) | payer OTHER, BC, MEDICAID, SELFPAY ==
[2025-03-17] VITALS (7 sets, daily range): BP systolic 114–134; BP diastolic 64–73; PULSE 81–102; RESP 16; BMI 38.1
== END 2025-03-17 09:47 | disposition home or self-care (01) ==
LOC: OPOB 07:45 → OBGYN 07:53
PROVIDERS: PCP Nurse Practitioner; Visit Provider Obstetrics & Gynecology
DX: O26.899 Other specified pregnancy related conditions, unspecified trimester (principal); Z3A.00 Weeks of gestation of pregnancy not specified; R10.9 Unspecified abdominal pain
CPT/HCPCS: 59025; 99211

== ENCOUNTER 2025-03-17 19:31 | Inpatient (IN) | payer OTHER, BC, MEDICAID, SELFPAY ==
[2025-03-17] VITALS (53 sets, daily range): BP systolic 106–151; BP diastolic 44–82; PULSE 65–118; RESP 18; TEMP 36.4–36.7; O2SAT 96–100; BMI 38.1
[2025-03-17 15:02] LABS: Hematocrit 36.1 % (36-47); Hemoglobin 12.50 g/dL (11.27-16.99); Mean Corpuscular HGB Conc 34.6 g/dL (30-55); Mean Corpuscular Hemoglobin 33.0 pg (27-33); Mean Corpuscular Volume 95.3 fl (85-98); Nucleated Red Blood Cells % 0 %; Platelet Count 165 10^3/cmm (157-399); Red Blood Count 3.79 10^6/uL (3.85-5.65); White Blood Count 17.40 10^3/uL (3.29-11.43)
--- NOTE | 2025-03-17 15:48 | ANES.PREANE2 ---
Pre-Anesthetic Assessment Height/Weight: Height 1.65 m Weight 103.873 kg Pulse BP Pulse Ox O2 Del Method 81 118/63 98 Room Air 03/17/25 15:45 03/17/25 15:44 03/17/25 15:45 03/17/25 14:34 Preop Diagnosis: active labor Labor Epidural Familial anesthetic complications: none Was Beta Ricardo taken within 24 hours: N/A Was Clonidine taken within 24 hours: N/A Last intake: 0900 meal current liquid Social No alcohol and No tobacco Exam alert, oriented x 3, clear to auscultation bilaterally and No regular rate & rhythm Airway Submandibular: within normal limits Cervical ROM: within normal limits Mallampati: Class II Dentition: full Pulmonary None reported CV/HEM None reported None reported Hepatic None reported GI Gastroesophageal Reflux Disease Metabolic None reported Musc/skel None reported Neuropsych Anxiety Anesthetic Plan ASA status: 2 Anesthesia: Regional (specify below) Other: WBC 17,000 no fevers or other indicators of infection Medications/Allergies Home Medications ?Medication ?Instructions ?Recorded ?Confirmed ?Last Taken ?Type ferrous sulfate 325 mg (65 mg 325 mg PO BID anemia 04/23/24 03/12/25 12/14/24 Rx iron) tablet (Iron (ferrous #60 tabs sulfate)) PNV 153-FA 400 mcg-om3 35 mg-dha 1 tab PO DAILY 08/09/24 03/12/25 12/14/24 History 25 mg-epa 5 mg-fish oil chew tablet ( Gummies) Allergies Allergy/AdvReac Type Severity Reaction Status Date / Time cocoa Allergy Unknown Verified 03/09/25 21:40 Penicillins Allergy swelling Verified 03/09/25 21:40 pork derived (porcine) Allergy Unknown Verified 03/09/25 21:40 barley AdvReac Severe ADR-Gastrointestinal Verified 03/09/25 21:40 Upset beef derived (bovine) AdvReac Severe ADR-Gastrointestinal Verified 03/09/25 21:40 Upset Current Medications Generic Name Dose Route Start Last Admin Trade Name Freq PRN Reason Stop Dose Admin Lactated Ringer's 1,000 mls @ 999 mls/hr 03/17/25 14:34 03/17/25 14:52 Lactated Ringers IV 999 mls/hr .Q1H1M PRN Administration See label comments PFSH Anesthesia Medical History (Updated 03/12/25 @ 15:18 by Alessandro Vilchis MD) History of migraine with in the last year No pertinent past medical history neghx: htn, dm, thyroid, dvt/pe PCP: [facility] anemia Allergy to beef 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 Surgical History No pertinent past surgical history Family History Grandfather Hypertension Grandmother Diabetes Maternal grandmother Paternal grandmother Hypertension Stroke Mother Heart disease Hyperlipidemia Hypertension Stroke Sister Hypertension Heart disease Diabetes Family/Other Breast cancer maternal aunt Father Hypertension Denies family history of Colon cancer Ovarian cancer Uterine cancer Thyroid disease Social History Smoking and tobacco/nicotine status: former use of tobacco/nicotine Second hand smoke exposure: No Alcohol intake: never Substance/Drug Use: never Adopted: No Caregiver/support person: No Lives independently: Yes Household members: family Marital status: Single Number of children: 0 service: No Current occupational status: employed Current occupation: [employer] Pets and animals: Yes Do you think of yourself as: Straight/Heterosexual Current gender identity: Female Female Reproductive History : 4 Data Anesthesia 03/17/25 14:25 Short CBC 03/17/25 Range/Units 14:25 WBC 17.40 H (3.29-11.43) 10^3/uL Hgb 12.50 (11.27-16.99) g/dL Hct 36.1 (36-47) % MCV 95.3 (85-98) fl Plt Count 165 (157-399) 10^3/cmm Neut % (Auto) 76.8 % Neut # (Auto) 13.36 H (1.8-7.7) 10^3/uL Blood Bank 03/17/25 14:25 Blood Type Cancelled Rho(D) Type Cancelled Antibody Screen Cancelled
[2025-03-17] MEDS: ROPivacaine premix 200 MG/100 ML PREMIX 10 MG EPIDURAL (15:50)
--- NOTE | 2025-03-17 15:55 | P.ANES_ITS ---
Anesthesia Procedures Procedure/Date: 03/17/25 Epidural: Time Out Performed: Yes Consents Signed: Procedure Consent Consent: requested by attending/covering physician and from patient Lumbar Level: L3-L4 Epidural position: sitting Epidural procedure: sterile prep of area, 1% lidocaine to numb the area, negative for paresthesia passed, test d ose given, 1.5% xylocaine 1:200k epi (5ml), 0.2% Ropivacaine bolus ml (5ml), placed PCEA, no systemic response, sterile dressing applied, L.U.D. no apparent complications and 0.2% Ropiavacaine @ mls/hr (13 ml /hr) Additional Comments: HARMEET at 6.5cm on first attempt, catheter threaded to 13 cm- test dose given, no systemic response. 100 mcg Fentanyl given via epidural and 5ml Ropivicaine bolus.
--- NOTE | 2025-03-17 17:07 | PM.OBGYHP ---
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 History of Present Illness: 34-year-old female at 38 weeks gestation (LMP 05/27/2024, BETHANY 03/27/2024) presents with pelvic pain, regular contractions, and bloody show. She notes normal daily movement. Last delivery was April 2024 of an 8 lb 3 oz female at 40 weeks without complications. No additional complaints reported. Review of Systems: Obstetric: Pelvic pain, uterine contractions, vaginal bleeding (positive bloody show ), normal movement. Allergies Penicillin, core products, and cocoa (patient-reported). Objective Vital Signs: Measure Value Blood Pressure 130/78 mmHg (at admission) BMI 38.1 kg/m2 Physical Exam: Abdomen/Obstetric: Gravid uterus at term; uterine contractions present. Pelvic exam: Cervix dilated to 5 cm; bloody show noted. presentation: Vertex presentation. heart tracing: Reactive with normal baseline, moderate variability, no decelerations. Laboratory Data Relevant for Visit: Hemoglobin: 12.5 g/dL (admission) Platelet count: 165 K/ L Group B Streptococcus screening: Negative Present Details : 4 Para: 1 Labs Rubella: Immune RPR: Negative GBS: Negative Medications/Allergies Home Medications ?Medication ?Instructions ?Recorded ?Confirmed ?Last Taken ?Type ferrous sulfate 325 mg (65 mg 325 mg PO BID anemia 04/23/24 03/12/25 12/14/24 Rx iron) tablet (Iron (ferrous #60 tabs sulfate)) PNV 153-FA 400 mcg-om3 35 mg-dha 1 tab PO DAILY 08/09/24 03/12/25 12/14/24 History 25 mg-epa 5 mg-fish oil chew tablet ( Gummies) Allergies Allergy/AdvReac Type Severity Reaction Status Date / Time cocoa Allergy Unknown Verified 03/09/25 21:40 Penicillins Allergy swelling Verified 03/09/25 21:40 pork derived (porcine) Allergy Unknown Verified 03/09/25 21:40 barley AdvReac Severe ADR-Gastrointestinal Verified 03/09/25 21:40 Upset beef derived (bovine) AdvReac Severe ADR-Gastrointestinal Verified 03/09/25 21:40 Upset PFSH 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 Surgical History No pertinent past surgical history Family History Grandfather Hypertension Grandmother Diabetes Maternal grandmother Paternal grandmother Hypertension Stroke Mother Heart disease Hyperlipidemia Hypertension Stroke Sister Hypertension Heart disease Diabetes Family/Other Breast cancer maternal aunt Father Hypertension Denies family history of Colon cancer Ovarian cancer Uterine cancer Thyroid disease Social History Smoking and tobacco/nicotine status: former use of tobacco/nicotine Second hand smoke exposure: No Alcohol intake: never Substance/Drug Use: never Adopted: No Caregiver/support person: No Lives independently: Yes Household members: family Marital status: Single Number of children: 0 service: No Current occupational status: employed Current occupation: [employer] Pets and animals: Yes Do you think of yourself as: Straight/Heterosexual Current gender identity: Female History History History 4 Term 1 0 Miscarriages/Ectopic 2 Living Children 1 Past Pregnancies Del. Date GA/Weeks Outcome Route Wt Inf Gender Labor Lgth Comp. Anesthesia Location Unknown 8 spontaneous Unknown spontaneous Opperative 04/22/24 40 live - full term Vaginal 8 lb [address] [facility] [address] [facility] Delivery Date: Last Updated by: Garret Borja CNA 2006 Delivery Date: Last Updated by: Garret Borja CNA 2011, d&c required Care BETHANY Calculator Estimated Delivery Date Method Current WG Current Estimate 03/27/25 Ultrasound #1 38w 4d Other Estimates 04/02/25 LMP (Uncertain) 37w 5d Specific Issues/Plans CLOSE INTERVAL PCOS BMI 32.4% (PRE-) ADVANCED MATERNAL AGE FORMER SMOKER---QUIT OVER A YEAR AGO Vitals/I&O/Wt Last Vital Signs Pulse 88 03/17/25 16:51 BP 130/65 03/17/25 16:51 Pulse Ox 96 03/17/25 16:15 O2 Del Method Room Air 03/17/25 16:15 Weight last 48 hrs Weight 229 lb Weight 229 lb Physical Exam Urinary Catheter Management: Ross: Cath Placed During This Visit: yes Urinary Catheter Date of Insertion: 03/17/25 Urinary Catheter Time of Insertion: 16:06 Data 03/17/25 14:25 Results Labs OB ([facility]): Obstetrics US 02/12/25 Blood Type A Positive 12/14/24 Antibody Screen Negative 12/14/24 Hct, (36-47) 36.1 % Today Hgb, (11.27-16.99) 12.50 g/dL Today Rho(D) Type Rh positive 12/14/24 Plt Count, (157-399) 165 10^3/cmm Today Hep Bs Antigen, (Nonreactive) Non-reactive 09/05/24 Hep Bs Ag Confirmation Not Reportable 09/27/23 Hepatitis C Antibody, (Nonreactive) Non-reactive 09/05/24 Rubella IgG Antibody, (0.0-10.0) 64.3 IU/mL H 09/05/24 RPR, (Nonreactive) Nonreactive 09/05/24 HIV 1&2 Ab & HIV 1 Ag, (Non-Reactiv) Non-reactive 09/05/24 TSH, (0.27-4.20) 0.62 uIU/mL 09/05/24 C.trachomatis RNA (TMA), (NOT DETECTED) Not detected 11/09/23 N.gonorrhoeae RNA (TMA), (NOT DETECTED) Not detected 11/09/23 T. vaginalis Amp RNA, (NOT DETECTED) Not detected 11/09/23 Chlamydia/GC Comment See note 11/09/23 Cystic Fibrosis Screen Negative 09/27/23 Glucose 1 Hr 50 gm, (85-140) 143 mg/dL H 01/09/25 Gest Glucose Tolerance mg/dL 01/18/25 Hemoglobin A1c, (4.0-6.0) 4.3 % 10/14/23 Ser , Semi-Qnt 14221.00 mIU/mL 08/09/24 HCG, Qual, (Negative) Positive H 08/09/24 Urine Opiates Screen, (Negative) Negative ng/mL 12/14/24 Ur Barbiturates Screen, (Negative) Negative ng/mL 12/14/24 Ur Phencyclidine Scrn, (Negative) Negative ng/mL 12/14/24 Ur Amphetamines Screen, (Negative) Negative ng/mL 12/14/24 U Benzodiazepines Scrn, (Negative) Negative ng/mL 12/14/24 Urine Cocaine Screen, (Negative) Negative ng/mL 12/14/24 U Marijuana (THC) Screen, (Negative) Negative ng/mL 12/14/24 Micro Urine Specimen 02/04/25 Pap Smear Interpret See note 10/11/23 A&P Assessment and plan 1. Uterine contractions during : 2. Advanced maternal age (AMA) in : 3. 38 weeks gestation of : Plan: Assessment and Plan 34-year-old at 38 weeks gestation presenting with pelvic pain, contractions, and vaginal bleeding; cervical dilation 5 cm with reactive heart tracing. Advanced maternal age and elevated BMI noted. Labs within acceptable parameters; GBS negative. Problem 1: Term in active labor Assessment: 38-week gestation, spontaneous labor with 5 cm cervical dilation; reassuring status. Plan: Admit to Labor and Delivery for anticipated normal spontaneous vaginal delivery (). Problem 2: Advanced maternal age (34 years) Assessment: Maternal age greater than 35 years noted. Plan: Will manage per standard obstetric protocols during labor and delivery. PDMP PDMP Reviewed: Not Reviewed Attestations Medical Necessity Statement*: Term in active labor Coding Level of Care Code Acute Code for Chg Fwd Diagnoses Uterine contractions during O47.9 Advanced maternal age (AMA) in 38 weeks gestation of Z3A.38
[2025-03-17] MEDS: metoclopramide 5 mg/mL SDV 2 mL 10 MG IVP (19:47)
[2025-03-17] MEDS: ceFAZolin 2,000 mg SDV 2000 MG IVP (19:47)
[2025-03-17] MEDS: tranexamic acid 1,000 MG/100 ML PREMIX 600 MG IV (20:15)
[2025-03-17] MEDS: methylergonovine 0.2 mg/mL INJ 1 mL IM (20:53)
--- NOTE | 2025-03-17 21:00 | PC.NURSE ---
incorrect times and dates entered into labor and delivery summary see second charting for correct times.
--- NOTE | 2025-03-17 21:45 | PM.OP2 ---
Brief Operative Note Date of procedure: 03/17/25 Pre-op diagnosis: AMA 34yo mother at 38 week pregnany in labor,non-reassuring status Post-op diagnosis: same Procedure Done: Primary LTCS Surgeon: Alessandro Vilchis Estimated blood loss (mL): 675 Complications: Impacted head due to second stage of labor. Post-op Plan: To recovery Condition: stable Disposition: floor
--- NOTE | 2025-03-17 21:53 | PM.OP ---
Operative Report Date of procedure: March 17, 2025 Pre-op diagnosis: NSFS with late decelerations and failure of decent. Surgeon: Alessandro Vilchis MD Brief History: PATIENT INFORMATION: Age: 34 years /Parity: Gestational Age: 38 weeks BMI: 38 kg/m? Prior Obstetric History: Vaginal delivery of 8 lb infant PREOPERATIVE DIAGNOSIS: 1. Intrauterine at 38 weeks gestation 2. Persistent late decelerations (category III heart rate tracing) 3. Second stage arrest of descent POSTOPERATIVE DIAGNOSIS: Same PROCEDURE PERFORMED: Primary low transverse section with delivery of impacted head by reverse breech extraction INDICATIONS FOR PROCEDURE: 34-year-old at 38 weeks gestation who progressed to complete cervical dilation with station at 0/+1. Initial heart rate pattern demonstrated variable decelerations that recovered after contractions. Vacuum-assisted delivery with Kiwi device was attempted with one application resulting in pop-off. Maternal position was changed several times and patient pushed for approximately 90 minutes without descent. heart rate tracing subsequently progressed to late decelerations followed by persistent late decelerations. Repeat pelvic examination demonstrated no change in descent. Given non-reassuring heart tracing and arrest of descent in second stage of labor, delivery by section was recommended. Patient provided informed consent. Dr. Torres and Dr. Leonard were notified of planned section, and Dr. Leonard was present for the procedure. PROCEDURE DETAILS: The patient received a single dose of terbutaline while the section was being arranged to reduce uterine contractions. Antibiotic prophylaxis consisted of cefazolin. After appropriate anesthesia was obtained and the patient was prepped and draped in sterile fashion, a Pfannenstiel skin incision was made. The incision was carried through subcutaneous tissues to the level of the fascia. The fascia was incised transversely and extended bilaterally. The rectus muscles were in the midline, and the peritoneum was entered sharply. A bladder flap was created and the bladder reflected inferiorly. A low transverse hysterotomy was performed. Due to impacted head at 0/+1 station, the body was pushed cephalad from the lower segment while the head was disimpacted from the pelvis. The infant was then delivered by reverse breech extraction technique through the uterine incision. Infant was handed to respiratory team for evaluation. The placenta was delivered manually. The uterus was exteriorized and examined. Uterine incision was inspected for extensions - none noted. The uterus was closed in two layers using locking suture technique. Hemostasis was adequate. Estimated blood loss: 675 mL The pelvis was copiously irrigated. Instrument, sponge, and needle counts were correct. The bladder flap was repositioned anatomically with 3-0 plain gut. The fascia was closed using running 0 vycril, Subcutaneous approximated with 3-0 plain gut . Insorb (absorbable subcuticular tonya). used for skin closure and the patient was transferred to recovery in stable condition. : Gender: Male Weight: >8lbs scores: 2 at 1 minute, 7 at 5 minutes, 9 at 10 minutes COMPLICATIONS: head impaction SPECIMENS: Placenta sent to pathology per routine DISPOSITION: Patient transferred to recovery in stable condition. Estimated blood loss 675 mL. Will monitor for postoperative complications including infection and hemorrhage given second-stage section.
[2025-03-17] MEDS: HYDROcodone-acetaminophen 5-325 mg Tablet PO (22:36)
[2025-03-18] VITALS (11 sets, daily range): BP systolic 109–130; BP diastolic 56–99; PULSE 93–106; RESP 16–18; TEMP 36.6–36.7; O2SAT 94–98
[2025-03-18] MEDS: HYDROcodone-acetaminophen 5-325 mg Tablet PO ×6 (03:06→23:32)
[2025-03-18] MEDS: PRENATAL VIT NO.130/IRON/FOLIC 1 EACH TABLET PO (04:45)
[2025-03-18] MEDS: ferrous sulfate EC 325 mg Tablet PO (07:09)
[2025-03-18 09:41] LABS: Hematocrit 23.0 % (36-47); Hemoglobin 7.80 g/dL (11.27-16.99); Mean Corpuscular HGB Conc 33.9 g/dL (30-55); Mean Corpuscular Hemoglobin 33.3 pg (27-33); Mean Corpuscular Volume 98.3 fl (85-98); Platelet Count 152 10^3/cmm (157-399); Red Blood Count 2.34 10^6/uL (3.85-5.65); White Blood Count 27.73 10^3/uL (3.29-11.43)
--- NOTE | 2025-03-18 13:32 | P.PN_ITS ---
Subjective 2 Subjective: POSTOPERATIVE DAY #1 NOTE Procedure: Primary low transverse section for persistent late decelerations and second stage arrest of descent Postoperative Day: 1 SUBJECTIVE: Patient reports feeling overall well. Denies chest pain, shortness of breath, dizziness, or syncope. Denies fever or chills. Pain controlled with current regimen. Ambulating without difficulty. Voiding spontaneously. Passing flatus. Tolerating regular diet. OBJECTIVE: General: Alert, comfortable, hemodynamically stable Cardiovascular: Regular rate and rhythm Lungs: Clear to auscultation bilaterally Abdomen: Soft, appropriately tender at incision site, fundus firm and at appropriate level Incision: Insorb closure intact, clean, dry, no erythema or drainage Extremities: No edema, calf tenderness Lochia: Moderate, normal color and odor LABS: Hemoglobin: 7.8 g/dL (postoperative) ASSESSMENT & PLAN: 34-year-old postoperative day 1 from primary low transverse section complicated by impacted head requiring reverse breech extraction. Postoperative course uncomplicated. Patient hemodynamically stable and asymptomatic with moderate anemia (hemoglobin 7.8 g/dL). Anemia Management: Patient's hemoglobin is 7.8 g/dL but she remains asymptomatic with normal vital signs. No indication for blood transfusion at this time. Pain Management: Continue current regimen with NSAIDs and acetaminophen. Avoid opioids if possible . Thromboprophylaxis: Assess VTE risk given BMI 38 and delivery. Recommend early mobilization Wound Care: Monitor Insorb closure. Keep clean and dry. : Bottle feeding Disposition: Continue inpatient monitoring. Anticipate discharge postoperative day 2-3 if clinically stable and no complications. Patient counseled regarding symptoms of anemia (fatigue, dizziness, dyspnea) and instructed to report immediately if develops. Vitals/I&O/Wt Last Vital Signs Temp 97.8 F 03/18/25 08:45 Pulse 94 03/18/25 08:45 Resp 18 03/18/25 08:45 BP 130/99 03/18/25 08:45 Pulse Ox 96 03/18/25 08:45 O2 Del Method Room Air 03/18/25 08:45 03/17/25 03/18/25 03/18/25 22:59 06:59 14:59 Intake Total 1516.667 / 5805.570 9503 / 3116.667 1000 / 1000 Output Total 1085 / 1085 500 / 500 Balance 1516.667 / 1516.667 515 / 2031.667 500 / 500 Weight last 48 hrs Weight 229 lb Weight 229 lb Physical Exam 2 Urinary Catheter Management: Ross: Cath Placed During This Visit: yes, but has since been removed by the nurse Reason for Continuing Indwelling Catheter: Other Urinary Catheter Date of Insertion: 03/17/25 Urinary Catheter Time of Insertion: 19:47 Date Urinary Catheter Removed: 03/18/25 Time Urinary Catheter Discontinued: 18:58 Data 03/18/25 09:30 A&P PDMP PDMP Reviewed: Not Reviewed Attestations 2 Medical Necessity Statement*: Recovering from surgery and moderate anemia post delivery Coding Level of Care Code Acute Code for Chg Fwd
[2025-03-19] MEDS: HYDROcodone-acetaminophen 5-325 mg Tablet PO (03:33)
[2025-03-19 04:50] VITALS: BP 104/58; PULSE 98; RESP 16; TEMP 36.6; O2SAT 97
[2025-03-19] MEDS: PRENATAL VIT NO.130/IRON/FOLIC 1 EACH TABLET PO (04:50)
[2025-03-19 05:23] VITALS: PULSE 98; RESP 16; TEMP 36.6; O2SAT 97
[2025-03-19 05:28] VITALS: BP 101/56; PULSE 98; RESP 16; O2SAT 98
--- NOTE | 2025-03-19 06:28 | PM.CONSULT ---
Providers/Reason For Consult Consulting Physician/Specialty*: Edward Braxton MD Reason for Consult*: Bilateral hand paresthesia Requesting Physician: Alessandro Vilchis MD Attending Physician: Alessandro Vilchis MD Primary Care Provider: ALDEN Murray History of Present Illness History of Present Illness Parisa Fine is a 34 year old who was admitted to the [facility] service on 03/17/2025 at 38 weeks gestation. She underwent section on day of admission for nonreassuring status with estimated blood loss of 675 cc. Hospitalist was consulted for complaints of bilateral hand numbness and weakness. During my encounter, the patient states that the issues began at approximately 5:30 AM while feeding her child. She states that both her hands and from the wrist and distally became weak and numb. This is more prominent on the left compared to the right hand and tells me that her hands suddenly went . She states that this is never happened to her before, denies any recent traumas. Currently, she states that the hands feel heavy. She denies other neurological complaints such as headache or other deficits in any other extremity. Medications/Allergies Home Medications ?Medication ?Instructions ?Recorded ?Confirmed ?Last Taken ?Type ferrous sulfate 325 mg (65 mg 325 mg PO BID anemia 04/23/24 03/12/25 12/14/24 Rx iron) tablet (Iron (ferrous #60 tabs sulfate)) PNV 153-FA 400 mcg-om3 35 mg-dha 1 tab PO DAILY 08/09/24 03/12/25 12/14/24 History 25 mg-epa 5 mg-fish oil chew tablet ( Gummies) Allergies Allergy/AdvReac Type Severity Reaction Status Date / Time cocoa Allergy Unknown Verified 03/09/25 21:40 Penicillins Allergy swelling Verified 03/09/25 21:40 pork derived (porcine) Allergy Unknown Verified 03/09/25 21:40 barley AdvReac Severe ADR-Gastrointestinal Verified 03/09/25 21:40 Upset Current Medications Generic Name Dose Route Start Last Admin Trade Name Freq PRN Reason Stop Dose Admin Hydrocodone Bitart/Acetaminophen 1 - 2 tab 03/17/25 21:36 03/19/25 03:33 Hydrocodone-Acetaminophen 5-325 Mg Tablet PO 2 tab Q4H PRN Administration MODERATE TO SEVERE PAIN Ferrous Sulfate 325 mg 03/18/25 08:00 03/18/25 07:09 Ferrous Sulfate Ec 325 Mg Tablet PO 325 mg BIDWM MISHA Administration Dextrose/Lactated Ringer's 1,000 mls @ 125 mls/hr 03/17/25 14:45 03/17/25 18:03 Dextrose 5%-Lactated Ringers IV 0 mls/hr .Q8H MISHA Infusion Lactated Ringer's 1,000 mls @ 999 mls/hr 03/17/25 14:34 03/17/25 18:03 Lactated Ringers IV 999 mls/hr .Q1H1M PRN Administration See label comments Ropivacaine 200 mg in 100 mls @ 10 mls/hr 03/17/25 14:45 03/17/25 15:50 Naropin Premix EPIDURAL 10 mls/hr .Q10H MISHA Administration Sodium Chloride 1,000 mls @ 125 mls/hr 03/17/25 19:45 03/18/25 11:23 Sodium Chloride 0.9% IV 125 mls/hr .Q8H MISHA Administration Tranexamic Acid 1,000 mg in 100 mls @ 600 mls/hr 03/17/25 19:31 03/17/25 20:15 Tranexamic Acid IV 600 mls/hr Q30M PRN Administration BLEEDING Ibuprofen 800 mg 03/19/25 05:00 03/19/25 04:50 Ibuprofen 800 Mg Tablet PO 800 mg TID MISHA Administration Methylergonovine Maleate 0.2 mg 03/17/25 19:31 03/17/25 20:53 Methylergonovine 0.2 Mg/Ml Inj 1 Ml IM 0.2 mg Q20M PRN Administration 2nd line bleeding Prenat Multivit/Cafe Site Attendant/Iron/Folic Ac 1 each 03/18/25 05:00 03/19/25 04:50 Vit No.130/Iron/Folic 1 Each Tablet PO 1 each DAILY MISHA Administration Simethicone 80 mg 03/17/25 21:36 03/18/25 07:09 Simethicone 80 Mg Chew PO 80 mg QID PRN Administration Gas distention PFSH Acute PFSH: Medical History (Updated 03/19/25 @ 07:14 by Edward Braxton MD) History of migraine with in the last year No pertinent past medical history neghx: htn, dm, thyroid, dvt/pe PCP: [facility] anemia Allergy to beef 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 Surgical History No pertinent past surgical history Family History Grandfather Hypertension Grandmother Diabetes Maternal grandmother Paternal grandmother Hypertension Stroke Mother Heart disease Hyperlipidemia Hypertension Stroke Sister Hypertension Heart disease Diabetes Family/Other Breast cancer maternal aunt Father Hypertension Denies family history of Colon cancer Ovarian cancer Uterine cancer Thyroid disease Social History Smoking and tobacco/nicotine status: former use of tobacco/nicotine Second hand smoke exposure: No Alcohol intake: never Substance/Drug Use: never Adopted: No Caregiver/support person: No Lives independently: Yes Household members: family Marital status: Single Number of children: 0 service: No Current occupational status: employed Current occupation: [employer] Pets and animals: Yes Do you think of yourself as: Straight/Heterosexual Current gender identity: Female Female Reproductive History: : 4 Vitals/I&O/Wt Last Vital Signs Temp 97.9 F 03/19/25 05:23 Pulse 98 03/19/25 05:23 Resp 16 03/19/25 05:23 BP 104/58 03/19/25 05:23 Pulse Ox 97 03/19/25 05:23 O2 Del Method Room Air 03/19/25 05:23 03/18/25 03/18/25 03/19/25 14:59 22:59 06:59 Intake Total 1000 / 1000 Output Total 700 / 700 500 / 1200 Balance 300 / 300 -500 / -200 Weight last 48 hrs Weight 103.873 kg Weight 103.873 kg Physical Exam Narrative: General: Patient is alert. In no acute distress CVS: No overt edema Pulmonary: No overt respiratory distress GI: No overt abdominal distention Neurological: Right hand demonstrates diminished sensation. Crepe Sole Scourer strength is intact 5/5. Left hand with impaired sensation to the dorsum and the palmar surfaces. Crepe Sole Scourer strength is 1/5 Urinary Catheter Management: Ross: Cath Placed During This Visit: yes, but has since been removed by the nurse Reason for Continuing Indwelling Catheter: Decision to DC Catheter Urinary Catheter Date of Insertion: 03/17/25 Urinary Catheter Time of Insertion: 19:47 Date Urinary Catheter Removed: 03/18/25 Time Urinary Catheter Discontinued: 16:50 Data 03/18/25 09:30 A&P Assessment and plan 1. Paresthesia of both hands: Unclear etiology I highly doubt this is central in nature, most likely peripheral. No recent traumas. The patient did have a epidural anticipating vaginal delivery but this was converted to section due to not assuring status of the fetus. However, this was 2 days in the past so unlikely to be related or causing issues at this point. Considered circulatory problems with positioning but patient was feeding her baby with onset. I recommended that neurology be involved. However, we do not have neurology in-house today. I think this could be evaluated as an outpatient. Though, if her problems persist, this would make childcare and feeding challenging. I will sign out to the daytime hospitalist team in regards to my thoughts. Further questions can be directed to our daytime staff. PDMP PDMP Reviewed: Not Reviewed Coding Level of Care Code Acute Code for Chg Fwd Diagnoses Paresthesia of both hands R20.2
--- NOTE | 2025-03-19 06:38 | PC.NURSE ---
[id number] SHAHNAZRE responded to call light from patient. Pt states can you help me with the baby I cant feel my arms . DENVER asked for pt to describe what she was feeling while moving the baby to open crib. pt reported that she could not move her arms, they felt heavy and numb. DENVER asked pt to touch her fingers to thumbs. Pt could not do this. LORETTAKatherin entered room at this time. DENVER then asked pt to lift her arms, pt was unable to do task. Vitals obtained 101/58, 98 HR, 98%. YULISA asked for patient to squeeze RN's hands, pt was unable to do so. YOUTA3 entered room. YOUTA3 used q-tip to test soft and sharp touch to see if patient could identify the difference with her eyes closed. pt was unable to identify either on her left hand but could on her right arm/hand and left arm above the wrist. Clonus was assessed and strength in both lower extremities, both found to be within normal limits. Pupillary response was assessed and found to be within normal limits. Capillary refill was assessed and found to be within normal limits. Dr. Vilchis notified at 0538 orders received for consultation with the hospitalist. 0524 Dr. Vilchis called hospitalist to come assessed. [id number] hospitalist in room with pt.
[2025-03-19 09:25] VITALS: BP 128/86; PULSE 105; RESP 16; TEMP 36.6; TEMP 36.7
--- NOTE | 2025-03-19 10:24 | P.PN_ITS ---
Subjective 2 Subjective: Patient is a very pleasant 34-year-old female seen and examined at bedside today on hospital rounds. Patient is sitting up in bedside chair stating mild abdominal pain but denies any new symptoms currently. Patient denies current numbness or tingling in bilateral hands and arms, states that she think she has carpal tunnel and that her numbness was positional. Spoke with patient about maintaining oral hydration and electrolytes, did put in a referral for neuro follow-up outpatient if needed. At this point patient has no neurological symptoms, hospitalist team is grateful for the opportunity to consult in the medical management this patient and we will sign off at this time. Okay to discharge from hospitalist standpoint. Vitals/I&O/Wt Last Vital Signs Temp 98.0 F 03/19/25 09:25 Pulse 105 H 03/19/25 09:25 Resp 16 03/19/25 09:25 BP 128/86 03/19/25 09:25 Pulse Ox 98 03/19/25 05:28 O2 Del Method Room Air 03/19/25 05:28 03/18/25 03/19/25 03/19/25 22:59 06:59 14:59 Output Total 500 / 1200 Balance -500 / -200 Weight last 48 hrs Weight 103.873 kg Weight 103.873 kg Physical Exam 2 Narrative: General: Patient is alert and oriented x 4. In no acute distress CVS: No overt edema, heart regular rate and rhythm. Pulmonary: Breathing is unlabored, clear bilaterally to auscultation. GI: No overt abdominal distention Neurological:CARO hands with normal sensation and movement. Urinary Catheter Management: Ross: Cath Placed During This Visit: yes, but has since been removed by the nurse Reason for Continuing Indwelling Catheter: Decision to DC Catheter Urinary Catheter Date of Insertion: 03/17/25 Urinary Catheter Time of Insertion: 19:47 Date Urinary Catheter Removed: 03/18/25 Time Urinary Catheter Discontinued: 16:50 Data 03/18/25 09:30 A&P Assessment and plan 1. Paresthesia of both hands: Resolved, patient does state concerns for carpal tunnel but sensation and strength are equal and normal. Patient does have an outpatient referral to neurology if warranted. Advised patient to follow-up with primary care provider in 1 to 2 days and continue to monitor if symptoms return. Patient is neurologically intact with no deficits during this examination. PDMP PDMP Reviewed: Not Reviewed Attestations 2 Medical Necessity Statement*: Defer to attending Coding Level of Care Code Acute Code for Chg Fwd Diagnoses Paresthesia of both hands R20.2
[2025-03-19] MEDS: ferrous sulfate EC 325 mg Tablet PO ×2 (11:37→20:22)
[2025-03-19] MEDS: magnesium citrate Btl 296 mL PO (14:16)
[2025-03-19 16:20] VITALS: BP 113/66; PULSE 95; RESP 17
[2025-03-19 20:22] VITALS: BP 110/74; PULSE 107; RESP 16; TEMP 36.7; O2SAT 98
[2025-03-20] MEDS: HYDROcodone-acetaminophen 5-325 mg Tablet PO ×2 (00:44→11:04)
[2025-03-20] MEDS: PRENATAL VIT NO.130/IRON/FOLIC 1 EACH TABLET PO (05:57)
[2025-03-20 05:58] VITALS: BP 120/66; PULSE 94; RESP 16; TEMP 36.8; O2SAT 98
--- NOTE | 2025-03-20 09:58 | P.PN_ITS ---
Subjective 2 Subjective: DAY 2 NOTE 03/19 Postoperative Day 1 Subjective: Patient reports feeling well overall. Tolerating regular diet and oral fluids without nausea or vomiting. Pain controlled with oral medications. Ambulating independently to bathroom. Passing flatus. Voiding spontaneously without difficulty. Denies headache, chest pain, shortness of breath, or leg pain/swelling. Objective: Vital Signs: Stable and within normal limits General: Alert, well-appearing, no acute distress Cardiovascular: Regular rate and rhythm Lungs: Clear to auscultation bilaterally Abdomen: Soft, non-distended, fundus firm below umbilicus, non-tender, bowel sounds present Incision: Low transverse incision clean, dry, and intact, no erythema, drainage, or dehiscence Lochia: Rubra, moderate flow, normal Extremities: No calf tenderness or edema, ambulatory Voiding: Spontaneously without difficulty Labs: Moderate anemia secondary to blood loss at delivery (include specific hemoglobin value if available) Assessment: Postoperative day 1 following primary low transverse section for persistent late decelerations and second stage arrest of descent. Recovering well. Moderate anemia due to blood loss. Plan: Continue early mobilization and ambulation Monitor vital signs, lochia, and incision Pain management with scheduled acetaminophen and NSAIDs, oral opioids as needed for breakthrough pain Anemia management: Consider iron supplementation based on hemoglobin level and patient symptoms Early urinary catheter removal per protocol (if not already removed) Venous thromboembolism prophylaxis as indicated Continue care education and support Monitor for warning signs: heavy bleeding, fever, increasing pain, signs of infection Plan discharge day 3 if continues to progress well Vitals/I&O/Wt Last Vital Signs Temp 98.2 F 03/20/25 05:58 Pulse 94 03/20/25 05:58 Resp 16 03/20/25 05:58 BP 120/66 03/20/25 05:58 Pulse Ox 98 03/20/25 05:58 O2 Del Method Room Air 03/20/25 05:58 03/19/25 03/20/25 03/20/25 22:59 06:59 14:59 Intake Total 1500 / 1500 Balance 1500 / 1500 Physical Exam 2 Urinary Catheter Management: Ross: Cath Placed During This Visit: yes, but has since been removed by the nurse Reason for Continuing Indwelling Catheter: Decision to DC Catheter Urinary Catheter Date of Insertion: 03/17/25 Urinary Catheter Time of Insertion: 19:47 Date Urinary Catheter Removed: 03/18/25 Time Urinary Catheter Discontinued: 16:50 Data 03/18/25 09:30 A&P PDMP PDMP Reviewed: Not Reviewed Attestations 2 Medical Necessity Statement*: Recovering from surgery Coding Level of Care Code Acute Code for Chg Fwvitaliy
--- NOTE | 2025-03-20 09:59 | P.PN_ITS ---
Subjective 2 Subjective: DAY 3 NOTE 03/20 Postoperative Day 2 Subjective: Patient continues to feel well, reports improved strength and energy. Tolerating regular diet without difficulty. Pain well controlled with oral analgesics. Ambulating independently throughout unit. Voiding spontaneously. . Denies fever, excessive bleeding, severe pain, headache, chest pain, shortness of breath, or leg swelling. Objective: Vital Signs: Stable and within normal limits General: Alert, well-appearing, ambulatory, no acute distress Cardiovascular: Regular rate and rhythm Abdomen: Soft, fundus firm and appropriately involuting, non-tender Incision: Low transverse incision clean, dry, and intact, no erythema, induration, or drainage Lochia: Rubra to serosa, moderate flow, normal Breasts: Soft to firm, no erythema or focal tenderness Extremities: No edema or calf tenderness, ambulating well Assessment: day 3, postoperative day 2 following primary low transverse section for persistent late decelerations and second stage arrest. Normal recovery course. Moderate anemia improving with iron supplementation. Mother and doing well. Plan: Discharge home today with normal postoperative recovery Discharge medications: Pain management: Acetaminophen and ibuprofen scheduled, opioid prescription for breakthrough pain as needed Iron supplementation for anemia vitamin Discharge instructions: Pelvic rest for 6 weeks (no intercourse, tampons, or douching) No heavy lifting or strenuous activity for 4-6 weeks Incision care: Keep clean and dry, may shower, call if signs of infection Activity as tolerated, gradually increase activity level Follow-up: visit in 2 weeks Warning signs reviewed: Heavy bleeding (soaking >1 pad/hour), fever >100.4?F, severe or worsening abdominal pain, foul-smelling discharge, chest pain, shortness of breath, severe headache, vision changes, leg pain/redness/swelling, incision redness/drainage/separation, difficulty urinating, signs of depression or thoughts of harming self or baby Infant care: Infant discharged home with mother today. Pediatric follow-up arranged with kitchen porter support: Resources provided for continued support as needed Patient verbalizes understanding of discharge instructions, warning signs, and has no further questions Vitals/I&O/Wt Last Vital Signs Temp 98.2 F 03/20/25 05:58 Pulse 94 03/20/25 05:58 Resp 16 03/20/25 05:58 BP 120/66 03/20/25 05:58 Pulse Ox 98 03/20/25 05:58 O2 Del Method Room Air 03/20/25 05:58 03/19/25 03/20/25 03/20/25 22:59 06:59 14:59 Intake Total 1500 / 1500 Balance 1500 / 1500 Physical Exam 2 Urinary Catheter Management: Ross: Cath Placed During This Visit: yes, but has since been removed by the nurse Reason for Continuing Indwelling Catheter: Decision to DC Catheter Urinary Catheter Date of Insertion: 03/17/25 Urinary Catheter Time of Insertion: 19:47 Date Urinary Catheter Removed: 03/18/25 Time Urinary Catheter Discontinued: 16:50 Data 03/18/25 09:30 A&P PDMP PDMP Reviewed: Not Reviewed Attestations 2 Medical Necessity Statement*: Surgery recovery Coding Level of Care Code Acute Code for Deshawn Brasher
--- NOTE | 2025-03-20 10:02 | PM.OBGYDC ---
Discharge Providers [employer] Date of Admission: 03/17/25 19:31 Date of Discharge: 03/20/25 Attending Provider at Admission: Alessandro Vilchis MD Attending Provider at Discharge: Alessandro Vilchis MD Primary Care Provider: ALDEN Murray Diagnoses at Discharge Discharge Diagnosis 1. Paresthesia of both hands: Details from hospital stay: Discharge Summary DISCHARGE SUMMARY Date of Discharge: 03/20/25 Day: 3 --- DELIVERY SUMMARY Indication: Persistent late decelerations, second stage arrest of descent Procedure: Primary low transverse section Gestational Age: Term Status: Discharged home with mother in good condition --- HOSPITAL COURSE Patient underwent uncomplicated primary section for persistent late decelerations and second stage arrest of descent. Postoperative recovery was normal with the exception of moderate anemia secondary to blood loss at delivery. Patient tolerated oral pain medications, advanced to regular diet, ambulated independently, and achieved all discharge criteria. Complications: Moderate anemia treated with iron supplementation --- DISCHARGE MEDICATIONS - Acetaminophen and ibuprofen (scheduled dosing) - NSAIDs analgesic as needed for breakthrough pain - Iron supplementation for anemia - vitamin --- DISCHARGE INSTRUCTIONS Activity: - Pelvic rest for 6 weeks (no intercourse, tampons, or douching) - No heavy lifting or strenuous activity for 4-6 weeks - Gradually increase activity as tolerated Incision Care: - Keep incision clean and dry; may shower - No baths, swimming, or soaking until follow-up visit - Monitor for signs of infection Warning Signs - Seek Immediate Care For: - Heavy bleeding (soaking more than one pad per hour) - Fever >100.4?F or chills - Severe or worsening abdominal pain - Incision redness, drainage, warmth, or separation - Foul-smelling vaginal discharge - Chest pain or shortness of breath - Severe headache or vision changes - Painful, swollen, or red areas in legs - Difficulty urinating or painful urination - Signs of depression or thoughts of harming self or baby --- FOLLOW-UP CARE Visit: 1-2 weeks with obstetric provider Comprehensive Visit: 6-12 weeks after delivery Pediatric Follow-up: As arranged with infant's echo technician --- DISCHARGE Infant discharged home with mother in good condition. Pediatric follow-up arranged. --- PATIENT EDUCATION Patient received verbal and written instructions regarding care, warning signs, activity restrictions, incision care, pain management, and infant care. Patient verbalizes understanding of all discharge instructions and has contact information for obstetric provider. Discharge Condition: Stable Discharge Disposition: Home Reason for Visit Reason for Visit: Ctx Information Peripartum Data: Infant Delivery Method: Physical Exam Urinary Catheter Management: Ross: Cath Placed During This Visit: yes, but has since been removed by the nurse Reason for Continuing Indwelling Catheter: Decision to DC Catheter Urinary Catheter Date of Insertion: 03/17/25 Urinary Catheter Time of Insertion: 19:47 Date Urinary Catheter Removed: 03/18/25 Time Urinary Catheter Discontinued: 16:50 History History History 4 Term 1 0 Miscarriages/Ectopic 2 Living Children 1 Past Pregnancies Del. Date GA/Weeks Outcome Route Wt Inf Gender Labor Lgth Comp. Anesthesia Location Unknown 8 spontaneous Unknown spontaneous Opperative 04/22/24 40 live - full term Vaginal 8 lb [address] [facility] [address] Marsh Delivery Date: Last Updated by: Garret Borja CNA 2006 Delivery Date: Last Updated by: Garret Borja CNA 2011, d&c required Discharge Data Studies Completed and Pending Pending at discharge Category Date Time Status Type and Screen Routine Lab 03/17/25 19:31 Uncollected Laboratory Results WBC 27.73 10^3/uL (3.29-11.43) H 03/18/25 09:30 RBC 2.34 10^6/uL (3.85-5.65) L 03/18/25 09:30 Hgb 7.80 g/dL (11.27-16.99) L D 03/18/25 09:30 Hct 23.0 % (36-47) L D 03/18/25 09:30 MCV 98.3 fl (85-98) H 03/18/25 09:30 MCH 33.3 pg (27-33) H 03/18/25 09:30 MCHC 33.9 g/dL (30-55) 03/18/25 09:30 RDW 13.1 % (12.1-15.1) 03/18/25 09:30 Plt Count 152 10^3/cmm (157-399) L 03/18/25 09:30 MPV 11.2 fL (7.4-10.4) H 03/18/25 09:30 Neut % (Auto) 76.8 % 03/17/25 14:25 Lymph % (Auto) 14.5 % 03/17/25 14:25 [place] % (Auto) 6.9 % 03/17/25 14: Eos % (Auto) 1.0 % 03/17/25 14: Baso % (Auto) 0.2 % 03/17/25 14: Neut # (Auto) 13.36 10^3/uL (1.8-7.7) H 03/17/25 14:25 Lymph # (Auto) 2.5 10^3/uL (0.8-4.8) 03/17/25 14:25 [place] # (Auto) 1.2 10^3/uL (0.2-0.9) H 03/17/25 14: Eos # (Auto) 0.2 10^3/uL (0.0-0.8) 03/17/25 14: Baso # (Auto) 0.0 10^3/uL (0.0-0.1) 03/17/25 14: Nucleated RBC % (auto) 0 % 03/17/25 14: Nucleated RBCs # 0.0 /100WBC 03/17/25 14:25 Blood Type A Positive 03/17/25 17:05 Rho(D) Type Rh positive 03/17/25 17:05 Antibody Screen Negative 03/17/25 17:05 Vitals Last Vital Signs Temp 98.2 F 03/20/25 05:58 Pulse 94 03/20/25 05:58 Resp 16 03/20/25 05:58 BP 120/66 03/20/25 05:58 Pulse Ox 98 03/20/25 05:58 O2 Del Method Room Air 03/20/25 05:58 Results Labs OB ([facility]): Obstetrics US 02/12/25 Blood Type A Positive 03/17/25 Antibody Screen Negative 03/17/25 Hct, (36-47) 23.0 % L Δ 03/18/25 Hgb, (11.27-16.99) 7.80 g/dL L Δ 03/18/25 Rho(D) Type Rh positive 03/17/25 Plt Count, (157-399) 152 10^3/cmm L 03/18/25 Hep Bs Antigen, (Nonreactive) Non-reactive 09/05/24 Hep Bs Ag Confirmation Not Reportable 09/27/23 Hepatitis C Antibody, (Nonreactive) Non-reactive 09/05/24 Rubella IgG Antibody, (0.0-10.0) 64.3 IU/mL H 09/05/24 RPR, (Nonreactive) Nonreactive 09/05/24 HIV 1&2 Ab & HIV 1 Ag, (Non-Reactiv) Non-reactive 09/05/24 TSH, (0.27-4.20) 0.62 uIU/mL 09/05/24 C.trachomatis RNA (TMA), (NOT DETECTED) Not detected 11/09/23 N.gonorrhoeae RNA (TMA), (NOT DETECTED) Not detected 11/09/23 T. vaginalis Amp RNA, (NOT DETECTED) Not detected 11/09/23 Chlamydia/GC Comment See note 11/09/23 Cystic Fibrosis Screen Negative 09/27/23 Glucose 1 Hr 50 gm, (85-140) 143 mg/dL H 01/09/25 Gest Glucose Tolerance mg/dL 01/18/25 Hemoglobin A1c, (4.0-6.0) 4.3 % 10/14/23 Ser , Semi-Qnt 30992.00 mIU/mL 08/09/24 HCG, Qual, (Negative) Positive H 08/09/24 Urine Opiates Screen, (Negative) Negative ng/mL 12/14/24 Ur Barbiturates Screen, (Negative) Negative ng/mL 12/14/24 Ur Phencyclidine Scrn, (Negative) Negative ng/mL 12/14/24 Ur Amphetamines Screen, (Negative) Negative ng/mL 12/14/24 U Benzodiazepines Scrn, (Negative) Negative ng/mL 12/14/24 Urine Cocaine Screen, (Negative) Negative ng/mL 12/14/24 U Marijuana (THC) Screen, (Negative) Negative ng/mL 12/14/24 Micro Urine Specimen 02/04/25 Pap Smear Interpret See note 10/11/23 Discharge Plan Discharge Patient Disposition: Home Condition: Stable Prescriptions: No Action Gummies 400 mcg-35 mg- 25 mg-5 mg tablet,chewable 1 tab PO DAILY ferrous sulfate [Iron (ferrous sulfate)] 325 mg (65 mg iron) tablet 325 mg PO BID Qty: 60 0RF Lift Supervisor OK for DC: Hospitalist Discharge Order = DC NOW: Discharge Order (Routine); Ordered 03/20/25 Ordered By: Alessandro Vilchis Referrals: Alessandro Vilchis MD [Physician, [employer] ROOM SERVICE SUPERVISOR] - 03/26/25 1:15 pm Referral Note: 6 week check scheduled on 04/23/25 @ 2:30 p.m Patient Instructions: Depression (DC), Preeclampsia and Eclampsia After Delivery (GEN), Hemorrhage (DC), OB [facility], OB Discharge Report, OB Food/Drug Interaction Guide, Opioid Safety, OB Home Care, Patient Portal & Cuong Instructions, Abnormal Bleeding Discharge Attestations HOTEL OR MOTEL ROOM SERVICE SUPERVISOR Time Spent in Discharge Care*: greater than 30 min Coding Level of Care Code Acute Code for Chg Fwd Diagnoses Paresthesia of both hands R20.2
[2025-03-20] MEDS: ferrous sulfate EC 325 mg Tablet PO (11:04)
[2025-03-20 11:55] VITALS: BP 137/64; PULSE 95; RESP 17; TEMP 36.7; O2SAT 98
--- NOTE | 2025-03-22 20:07 | PC.NURSE ---
OR charting times entered incorrectly and written incorrectly on anesthesia record correct times are as follows. Anesthesia start time 1946 surgery start time 2002 surgery end time 2011 anesthesia end time 2133 pacu started 2134 pacu end time 2209
== END 2025-03-20 11:55 | disposition home or self-care (01) | DRG 787 ==
LOC: OPOB 03-18 09:27 → OBGYN 03-18 09:28
PROVIDERS: Admitting Provider Obstetrics & Gynecology; PCP Nurse Practitioner; Visit Provider Obstetrics & Gynecology
PROC: 10D00Z1 Extraction of Products of Conception, Low, Open Approach (ICD-10-PCS; CPT 59514; principal; 2025-03-17 19:50)
DX: O76 Abnormality in fetal heart rate and rhythm complicating labor and delivery (principal); D62 Acute posthemorrhagic anemia; Z3A.38 38 weeks gestation of pregnancy; O62.1 Secondary uterine inertia; O99.344 Other mental disorders complicating childbirth; O99.284 Endocrine, nutritional and metabolic diseases complicating childbirth; E28.2 Polycystic ovarian syndrome; Z37.0 Single live birth; O67.8 Other intrapartum hemorrhage; O75.89 Other specified complications of labor and delivery; K21.9 Gastro-esophageal reflux disease without esophagitis; F41.9 Anxiety disorder, unspecified; O90.89 Other complications of the puerperium, not elsewhere classified; R20.2 Paresthesia of skin; Z91.014 Allergy to mammalian meats; Z91.018 Allergy to other foods; Z87.891 Personal history of nicotine dependence
CPT/HCPCS: 36415; 51702; 59025; 59409; 85025; 85027; 86850; 86900; 96372; 99211; J0690; J1200; J1885; J2210; J2405; J2765; J2795; J3010; J3105; J3490; J7030; J7120; J7121; J9999; P9045